=== PATIENT | female | born 1950 | race Caucasian/White ===

== ENCOUNTER 2018-10-24 16:59 | Inpatient (IN) | payer MEDICARE, OTHER ==
[~2018-10-24] VITALS: Ht 157.5 cm; Wt 57.7 kg
--- NOTE | 2018-10-24 06:36 | NUR ---
RN NOTES TELE MONITOR READS SINUS JEFFERY 48 - 55. PATIENT IS ASLEEP BUT AROUSABLE, NO COMPLAINS OF DIFFICULTY BREATHING, PAIN OR DISCOMFORT. WILL CONTINUE TO MONITOR. Addendum: 10/25/18 at 0641 by PAULINE WANG RN WRONG DATE ENTRY.
--- NOTE | 2018-10-24 17:10 | NUR ---
DR VALDOVINOS AT BEDSIDE
[2018-10-24] MEDS ORDERED: ACET-868 PO (17:24)
[2018-10-24] MEDS ORDERED: FENO145T35 PO (17:24)
[2018-10-24] MEDS ORDERED: RISP0.253 PO (17:24)
[2018-10-24] MEDS ORDERED: BENZ1TAB7 PO (17:24)
[2018-10-24] MEDS ORDERED: DOCU-141 PO (17:24)
[2018-10-24] MEDS ORDERED: MAGN400O6 PO (17:24)
[2018-10-24] MEDS ORDERED: ONDA4TAB5 PO (17:24)
[2018-10-24] MEDS ORDERED: NA P133E RC (17:24)
[2018-10-24] MEDS ORDERED: HYDR-4076 PO (17:24)
[2018-10-24] MEDS ORDERED: BISA10SU8 RC (17:24)
[2018-10-24] MEDS ORDERED: OMEG-88 PO (17:24)
[2018-10-24] MEDS ORDERED: LITH300T3 PO (17:24)
[2018-10-24] MEDS ORDERED: PANT40TA2 PO (17:24)
--- NOTE | 2018-10-24 17:34 | NUR ---
CLINICAL RESEARCH TECHNICIAN AT BEDSIDE
--- NOTE | 2018-10-24 17:36 | NUR ---
CODY, FROM SNF CAME D/T ABNORMAL LAB LITHIUM LEVEL OF 1.5, PT AXOX4 FOLLOWS COMMANDS, COMFORTABLE N STABLE ATT
[2018-10-24 18:37] LABS: APPEARANCE,URINE Clear (CLEAR); BILIRUBIN,URINE Negative (NEGATIVE); BLOOD, URINE Negative Ery/uL (NEGATIVE); COLOR,URINE Yellow (YELLOW); KETONES,URINE Negative (NEGATIVE); LEUKOCYTE ESTERASE ,URINE Small (NEGATIVE); NITRITE, URINE Negative (NEGATIVE); PROTEIN,URINE Negative (NEGATIVE); UGLUCOSE Negative (NEGATIVE); UROBILINOGEN,URINE 0.2 EU/dL (0.2)
[2018-10-24 18:47] LABS: BACTERIA,URINE None seen /HPF (None Seen); RBC,URINE 0-2 /HPF (0-2); SQUAMOUS EPITHELIAL CELL,UR Few /HPF (None Seen); WBC,URINE 0-2 /HPF (0-3)
--- NOTE | 2018-10-24 19:02 | NUR ---
PROVIDED W EGG SANDWICH AND APPLE JUICE
[2018-10-24 19:07] LABS: BASOPHILS % (AUTO) 0.5 % (0.0-2.0); EOSINOPHILS % (AUTO) 1.9 % (0.0-6.0); HEMATOCRIT 42 % (33-45); HEMOGLOBIN 13.7 g/dL (11.5-14.8); LYMPHOCYTES # (AUTO) 1.1 /CMM (0.8-4.8); LYMPHOCYTES % (AUTO) 12.1 % (20.0-44.0); MEAN CORPUSCULAR HGB CONC 33 g/dl (31.0-36.0); MEAN CORPUSCULAR VOLUME 88 fL (82-100); MONOCYTES # (AUTO) 0.5 /CMM (0.1-1.30); MONOCYTES % (AUTO) 6.2 % (2.0-12.0); NEUTROPHILS # (AUTO) 6.9 /CMM (1.8-8.9); NEUTROPHILS % (AUTO) 79.3 % (43.0-81.0); PLATELET COUNT (AUTO) 394 /CMM (150-450); RED BLOOD CELL COUNT(AUTO) 4.76 MIL/uL (4.0-5.2); WHITE BLOOD COUNT (AUTO) 8.8 K/uL (4.3-11.0)
[2018-10-24 19:16] LABS: CALCIUM, SERUM 11.5 mg/dL (8.5-10.1); CARBON DIOXIDE 28 mmol/L (21-32); CHLORIDE 109 mmol/L (98-107); CREATININE 1.1 mg/dL (0.6-1.3); GLUCOSE 116 mg/dL (74-106); POTASSIUM 4.1 mmol/L (3.5-5.1); SODIUM SERUM 141 mmol/L (136-145); UREA NITROGEN, BLOOD 19 mg/dL (7-18)
[2018-10-24 19:22] LABS: ACETAMINOPHEN 0 ug/ml (10-30); ALANINE AMINOTRANSFERASE 21 U/L (12-78); ALBUMIN 3.8 g/dL (3.4-5.0); ALCOHOL, BLOOD < 3 mg/dL (0-0); ALKALINE PHOSPHATASE 109 U/L (46-116); ASPARTATE AMINOTRANSFERASE 17 U/L (15-37); BILIRUBIN,DIRECT 0.1 mg/dL (0.0-0.2); BILIRUBIN,TOTAL 0.2 mg/dL (0.2-1.0); SALICYLATE 1.5 mg/dL (2.8-20.0); TOTAL PROTEIN, SERUM 7.7 g/dL (6.4-8.2)
--- NOTE | 2018-10-24 19:29 | NUR ---
ROSITA CALLED AND PLASTER MACHINE TENDER DR VILLAREAL
--- NOTE | 2018-10-24 19:31 | NUR ---
[facility]IN ORTEGA CALLED FOR TELE BED
--- NOTE | 2018-10-24 19:35 | NUR ---
REPORT GIVEN TO ANA BRITT FOR CHARMAINE
--- NOTE | 2018-10-24 19:48 | NUR ---
[facility]IN ORTEGA CALLED FOR TELE BED. STILL AWAITING RESPONSE
--- NOTE | 2018-10-24 19:54 | NUR ---
TELE BED 327-2 GIVEN
--- NOTE | 2018-10-24 20:23 | NUR ---
REPORT GIVEN TO BALWINDER MAC FOR CHARMAINE; PT WILL BE TRANSPORTED TO ROOM 327 VIA ACLS PROTOCOL
[2018-10-24 20:30] VITALS: BP 124/89
--- NOTE | 2018-10-24 20:30 | NUR ---
RN ADMITTING NOTES ADMITTED A 68 Y/O FEMALE, FROM SNF, TRANSPORTED VIA GURNEY, PATIENT IS AMBULATORY WITH STANDBY ASSIST. INITIAL ASSESSMENT DONE, DENIES ANY PAIN AND DISCOMFORT, SAFETY MEASURES IN PLACED, ORIENTED PATIENT TO UNIT AND THE USE OF CALL LIGHT, SKIN IS INTACT, ALL NEEDS ATTENDED, VITAL SIGNS TAKEN AND RECORDED. WILL MONITOR ACCORDINGLY.
[2018-10-24] MEDS ORDERED: Z GUARD REMEDY 2 OZ OINT TP PRN (22:00)
[2018-10-24] MEDS ORDERED: HYDROCODONE/APAP 5/325MG 1 EACH TABLET PO PRN (22:00)
[2018-10-24] MEDS ORDERED: hydrALAZINE HCL 25 MG TABLET PO PRN (22:00)
[2018-10-24] MEDS ORDERED: ZOLPIDEM TARTRATE 5 MG TABLET PO PRN (22:00)
[2018-10-24] MEDS ORDERED: ONDANSETRON HCL/PF 4 MG/2 ML VIAL IVP PRN (22:00)
[2018-10-24] MEDS ORDERED: ACETAMINOPHEN 325 MG TABLET PO PRN (22:00)
[2018-10-24] MEDS: FENOFIBRATE NANOCRYS (145 MG) 145 MG TABLET PO SCH (22:06)
[2018-10-24] MEDS: BENZTROPINE MESYLATE (1 MG) 1 MG TABLET PO SCH (22:06)
[2018-10-24] MEDS: risperiDONE 1 MG TABLET PO SCH (22:06)
[2018-10-24] MEDS: IV NS 0.9% 1,000 ML IV PRN (23:03)
--- NOTE | 2018-10-25 00:08 | NUR ---
RN NOTES PATIENT CONNECTED TO TELE MONITOR, READS SINUS JEFFERY, 50s, WILL CONTINUE TO MONITOR.
[2018-10-25 03:57] VITALS: BP 113/73
[2018-10-25 04:00] VITALS: BP 113/73
--- NOTE | 2018-10-25 04:00 | NUR ---
RN NOTES TELE MONITOR READS SINUS JEFFERY 48 - 55. PATIENT IS ASLEEP BUT AROUSABLE, NO COMPLAINS OF DIFFICULTY BREATHING, PAIN OR DISCOMFORT. WILL CONTINUE TO MONITOR.
--- NOTE | 2018-10-25 06:52 | NUR ---
STEAMBOAT CAPTAIN NOTES ALL NEEDS ATTENDED AND MET, MONITORED VITAL SIGNS WITH EPISODES OF SINUS JEFFERY WITH HR 45s TO 50s, WILL ENDORSE TO AM NURSE FOR CONTINUITY OF CARE.
[2018-10-25 07:23] LABS: BASOPHILS % (AUTO) 0.6 % (0.0-2.0); EOSINOPHILS % (AUTO) 2.7 % (0.0-6.0); HEMATOCRIT 40 % (33-45); LYMPHOCYTES # (AUTO) 1.2 /CMM (0.8-4.8); LYMPHOCYTES % (AUTO) 17.8 % (20.0-44.0); MEAN CORPUSCULAR HGB CONC 33 g/dl (31.0-36.0); MEAN CORPUSCULAR VOLUME 86 fL (82-100); MONOCYTES # (AUTO) 0.4 /CMM (0.1-1.30); MONOCYTES % (AUTO) 5.9 % (2.0-12.0); NEUTROPHILS # (AUTO) 4.8 /CMM (1.8-8.9); PLATELET COUNT (AUTO) 367 /CMM (150-450); WHITE BLOOD COUNT (AUTO) 6.5 K/uL (4.3-11.0)
--- NOTE | 2018-10-25 07:30 | NUR ---
MS/RN Patient received Patient received from night auditor. A/O X3, vital signs stable, no fevers. Tele monitor reading SB, heart rate 53. All needs addressed, will continue to monitor and ensure safety.
[2018-10-25 08:01] LABS: CALCIUM, SERUM 10.7 mg/dL (8.5-10.1); MAGNESIUM 2.1 mg/dL (1.8-2.4); PHOSPHORUS 2.6 mg/dL (2.5-4.9)
[2018-10-25 08:09] VITALS: BP 112/70
[2018-10-25 08:23] VITALS: BP 112/70
[2018-10-25] MEDS: PANTOPRAZOLE 40 MG TABLET.DR PO SCH (09:04)
[2018-10-25] MEDS: BENZTROPINE MESYLATE (1 MG) 1 MG TABLET PO SCH ×2 (09:04→17:01)
[2018-10-25] MEDS: LITHIUM CARBONATE (300 MG CAP) 300 MG CAPSULE PO SCH ×2 (09:05→21:04)
--- NOTE | 2018-10-25 10:00 | NUR ---
MS/RN [place] level Morning labs reviewed: -lithium level 0.97
--- NOTE | 2018-10-25 10:52 | NUR ---
MS/sustainability project manager manager flight Lucy Naranjo called and informed of patient's wish to be discharged to different facility, will follow up.
--- NOTE | 2018-10-25 11:00 | NUR ---
MS/RN S/B Dr Ji Seen by Dr Ji - lithium level now within normal range, continue with current lithium dose and all other medications, discharge planning back to SNF. security services manager to see patient due to request to be placed in different facility.
[2018-10-25] MEDS: IV NS 0.9% 1,000 ML IV PRN (12:06)
--- NOTE | 2018-10-25 14:54 | NUR ---
MS/RN Rounds Patient remains calm and cooperative.
[2018-10-25 16:00] VITALS: BP 110/65
[2018-10-25] MEDS: DOCUSATE SODIUM 100 MG CAPSULE PO SCH (17:01)
--- NOTE | 2018-10-25 18:40 | NUR ---
MS/RN End note Patient remains in stable condition, all needs attended. Will endorse to plant operator/shift supervisor.
--- NOTE | 2018-10-25 19:15 | NUR ---
RN MS OPENING NOTES RECEIVED PATIENT AWAKE, ALERT AND ORIENTED X 4, RESPIRATIONS EVEN AND UNLABORED WITH EQUAL RISE AND FALL OF CHEST,DENIES ANY PAIN OR DISCOMFORT AT THIS TIME, IV SITE TO LEFT WRIST #20g INTACT AND PATENT, NO REDNESS NO INFILTRATION PRESENT, IVF FLOWING ORDERED, ORIENTED TO STAFF AND CALL LIGHT AND KEPT WITHIN REACH, SAFETY PRECAUTIONS IN PLACE, ALL NEEDS ATTENDED AT THIS TIME,REMAINS COMFORTABLE WILL CONTINUE TO MONITOR.
[2018-10-25 20:00] VITALS: BP 110/66
[2018-10-25] MEDS: risperiDONE 1 MG TABLET PO SCH (21:04)
[2018-10-25] MEDS: FENOFIBRATE NANOCRYS (145 MG) 145 MG TABLET PO SCH (21:04)
[2018-10-26] MEDS: IV NS 0.9% 1,000 ML IV PRN (05:05)
--- NOTE | 2018-10-26 06:32 | NUR ---
RN MS CLOSING NOTES PATIENT AWAKE, ALERT AND ORIENTED X 4, RESPIRATIONS EVEN AND UNLABORED WITH EQUAL RISE AND FALL OF CHEST,DENIES ANY PAIN OR DISCOMFORT AT THIS TIME, IV SITE TO RIGHT WRIST #24g INTACT AND PATENT, NO REDNESS NO INFILTRATION PRESENT, PATIENT CURRENTLY WALKING IN ROOM,STEADY CALL LIGHT KEPT WITHIN REACH, SAFETY PRECAUTIONS IN PLACE, ALL NEEDS ATTENDED AT THIS TIME,REMAINS COMFORTABLE WILL CONTINUE TO MONITOR AND ENDORSE TO NEXT SHIFT.
[2018-10-26 06:42] LABS: BASOPHILS # (AUTO) 0.1 /CMM (0.0-0.2); BASOPHILS % (AUTO) 0.8 % (0.0-2.0); EOSINOPHILS % (AUTO) 2.3 % (0.0-6.0); HEMATOCRIT 38 % (33-45); HEMOGLOBIN 12.5 g/dL (11.5-14.8); LYMPHOCYTES # (AUTO) 1.7 /CMM (0.8-4.8); LYMPHOCYTES % (AUTO) 22.4 % (20.0-44.0); MEAN CORPUSCULAR HGB CONC 33 g/dl (31.0-36.0); MEAN CORPUSCULAR VOLUME 86 fL (82-100); MONOCYTES # (AUTO) 0.4 /CMM (0.1-1.30); MONOCYTES % (AUTO) 5.9 % (2.0-12.0); NEUTROPHILS # (AUTO) 5.1 /CMM (1.8-8.9); NEUTROPHILS % (AUTO) 68.6 % (43.0-81.0); PLATELET COUNT (AUTO) 356 /CMM (150-450); RED BLOOD CELL COUNT(AUTO) 4.39 MIL/uL (4.0-5.2); WHITE BLOOD COUNT (AUTO) 7.4 K/uL (4.3-11.0)
[2018-10-26 06:54] LABS: CALCIUM, SERUM 10.5 mg/dL (8.5-10.1); CREATININE 0.9 mg/dL (0.6-1.3); POTASSIUM 4.1 mmol/L (3.5-5.1)
[2018-10-26] MEDS: PANTOPRAZOLE 40 MG TABLET.DR PO SCH (07:30)
--- NOTE | 2018-10-26 07:30 | NUR ---
MS RN Opening Notes Patient asleep, resting in bed. Semi-Fowlers position. Alert and oriented x3, able to make needs known. No complaints of pain at this time. Respirations even and unlabored on room air, no acute distress noted. Peripheral IV to the right wrist 24 gauge, intact, patent and infusing fluids. Updated patient on current plan of care and safety measures. Safety and fall precautions in place: bed in lowest and locked position, side rails up x2, bed alarm on, call light and personal possessions within reach. Will continue to monitor and intervene as needed.
[2018-10-26 08:00] VITALS: BP 129/80
[2018-10-26] MEDS: LITHIUM CARBONATE (300 MG CAP) 300 MG CAPSULE PO SCH ×2 (09:35→21:34)
[2018-10-26] MEDS: BENZTROPINE MESYLATE (1 MG) 1 MG TABLET PO SCH ×2 (09:35→16:51)
--- NOTE | 2018-10-26 11:00 | NUR ---
MS toolroom helper Note Patient currently refusing AM doses of Fairchild and Benztropine. States the previous assistant shift supervisor RN Vonnie already administered. Educated patient about medication administration schedule and attempted to clear up confusion. Patient remains agitated and confused. Will continue to monitor.
[2018-10-26 16:00] VITALS: BP 108/64
[2018-10-26] MEDS: DOCUSATE SODIUM 100 MG CAPSULE PO SCH (17:02)
--- NOTE | 2018-10-26 18:55 | NUR ---
MS RN Closing Notes Patient asleep, resting in bed. Semi-Fowlers position. Alert and oriented x3, able to make needs known. No complaints of pain at this time. Respirations even and unlabored on room air, no acute distress noted. Peripheral IV to the right wrist 24 gauge, intact, patent and saline locked. Updated patient on current plan of care and safety measures. Safety and fall precautions in place: bed in lowest and locked position, side rails up x2, bed alarm on, call light and personal possessions within reach. Will endorse to copy messenger RN for continuity of care.
--- NOTE | 2018-10-26 19:30 | NUR ---
RN MS OPENING NOTES RECEIVED PATIENT IN BED AWAKE, ALERT AND ORIENTED X3, VERBALLY RESPONSIVE, ABLE TO MAKE NEEDS KNOWN. BREATHING EVEN AND UNLABORED. NO SOB NOTED. TOLERATING ROOM AIR. NO COMPLAINTS OF PAIN OR DISCOMFORT. NO FACIAL GRIMACING. IV ON RIGHT WRIST INTACT AND PATENT. SKIN DRY AND WARM TO TOUCH. AFEBRILE. ALL OTHER NEEDS ATTENDED TO. SITTER AT BEDSIDE. SAFETY MEASURES IN PLACE. CALL LIGHT WITHIN REACH. WILL CONTINUE TO MONITOR.
[2018-10-26 20:00] VITALS: BP 117/63
[2018-10-26] MEDS: risperiDONE 1 MG TABLET PO SCH (21:34)
[2018-10-26] MEDS: FENOFIBRATE NANOCRYS (145 MG) 145 MG TABLET PO SCH (21:34)
--- NOTE | 2018-10-27 06:58 | NUR ---
RN MS CLOSING NOTES PATIENT RESTING IN BED. NO ACUTE CHANGES THROUGHOUT SHIFT. BREATHING EVEN AND UNLABORED. NO SOB NOTED. TOLERATING ROOM AIR. NO COMPLAINTS OF PAIN OR DISCOMFORT. NO FACIAL GRIMACING. IV ON RIGHT WRIST INTACT AND PATENT. SKIN DRY AND WARM TO TOUCH. AFEBRILE. ALL OTHER NEEDS ATTENDED TO. SITTER AT BEDSIDE. ANTICIPATING DISCHARGE TO SNF. SAFETY MEASURES IN PLACE. CALL LIGHT WITHIN REACH. WILL ENDORSE TO ONCOMING NURSE FOR CHARMAINE.
[2018-10-27] MEDS: PANTOPRAZOLE 40 MG TABLET.DR PO SCH (07:30)
[2018-10-27] MEDS: BENZTROPINE MESYLATE (1 MG) 1 MG TABLET PO SCH (09:00)
[2018-10-27] MEDS: LITHIUM CARBONATE (300 MG CAP) 300 MG CAPSULE PO SCH (09:00)
--- NOTE | 2018-10-27 12:37 | NUR ---
pt discharged to [facility] gave report to BALWINDER Neri pt transported via [facility]. no SOB not in any distress. denies pain, removed IV access no bleeding no signs of infection. discharge instructions given to pt and SNF nurse. all needs met.
== END 2018-10-27 12:34 | DRG 917 ==
LOC: ER 17:07 → TELE 19:56 → MED 10-25 12:12
PROVIDERS: ADMIT Nurse Practitioner Acute Care; ATTEND Family Medicine
DX: T56.891A Toxic effect of other metals, accidental (unintentional), initial encounter (principal); G92 Toxic encephalopathy; Y92.009 Unspecified place in unspecified non-institutional (private) residence as the place of occurrence of the external cause; I10 Essential (primary) hypertension; E78.5 Hyperlipidemia, unspecified; Z87.440 Personal history of urinary (tract) infections; F25.0 Schizoaffective disorder, bipolar type
CPT/HCPCS: 36415; 71045-TC; 80048-TC; 80061-TC; 80076-TC; 80305; 81000-TC; 83735-TC; 84100-TC; 85025-TC; 87081-TC; G0378; G0480; J7030

== ENCOUNTER 2020-05-03 13:02 | Emergency (ER) | payer MEDICARE, OTHER ==
[~2020-05-03] VITALS: Ht 160 cm; Wt 61.2 kg
[~2020-05-03 13:02] MED LIST: ACET-868 PO; BENZ1TAB7 PO; BISA10SU11 RC; DOCU-141 PO; FENO145T21 PO; HYDR-4076 PO; LITH300T3 PO; MAGN400O6 PO; NA P133E RC; OMEG-88 PO; ONDA4TAB5 PO; PANT40TA2 PO; RISP0.253 PO
[2020-05-03 13:04] VITALS: BP 133/92
--- NOTE | 2020-05-03 14:16 | NUR ---
[facility] ETA 1440
--- NOTE | 2020-05-03 14:44 | NUR ---
REPORT GIVEN TO KING KING
== END 2020-05-03 14:42 | disposition home or self-care (01) ==
LOC: ER 13:06
DX: H10.31 Unspecified acute conjunctivitis, right eye (principal); I10 Essential (primary) hypertension; E78.5 Hyperlipidemia, unspecified; F41.9 Anxiety disorder, unspecified; F20.9 Schizophrenia, unspecified; Z79.899 Other long term (current) drug therapy

== ENCOUNTER 2020-05-06 13:02 | Inpatient (IN) | payer MEDICARE, OTHER ==
[~2020-05-06] VITALS: Ht 167.6 cm; Wt 58.5 kg
--- NOTE | 2020-05-06 13:15 | NUR ---
CODY FROM [facility]. TO ER BED 12. AAOX1. NOT IN RESP DISTRESS. BROUGHT IN FOR R FACIAL REDNESS AND SWELLING W/ NOTED DRY SCABS OVER. PT WAS SENT OVER BY ASHLEY PERERA TO BE REFFERED TO DR. SENIOR. WAS AT THE BEDSIDE FOR EVAL. ORDERS RECEIVED NOTED AND CARRIED OUT.
--- NOTE | 2020-05-06 13:17 | NUR ---
CALLED DR SANDERS'S OFFICE TO REQUEST A PEER TO PEER
--- NOTE | 2020-05-06 13:19 | NUR ---
SPOKE TO DISABILITY AIDE FOR DR SANDERS, SHE WILL PAGE HIM
[2020-05-06] MEDS ORDERED: CEFAZOLIN 1 GM in IV D5W 50 ML IV ONE (13:30)
[2020-05-06] MEDS ORDERED: ACYCLOVIR IV 500 MG in IV D5W 100 ML IV ONE (13:30)
[2020-05-06 13:38] LABS: BASOPHILS # (AUTO) 0.1 /CMM (0.0-0.2); BASOPHILS % (AUTO) 0.7 % (0.0-2.0); EOSINOPHILS % (AUTO) 0.3 % (0.0-6.0); HEMATOCRIT 44 % (33-45); HEMOGLOBIN 14.6 g/dL (11.5-14.8); LYMPHOCYTES # (AUTO) 0.6 /CMM (0.8-4.8); LYMPHOCYTES % (AUTO) 7.9 % (20.0-44.0); MEAN CORPUSCULAR HGB CONC 33 g/dl (31.0-36.0); MEAN CORPUSCULAR VOLUME 94 fL (82-100); MONOCYTES # (AUTO) 0.9 /CMM (0.1-1.30); MONOCYTES % (AUTO) 12.1 % (2.0-12.0); NEUTROPHILS # (AUTO) 5.8 /CMM (1.8-8.9); PLATELET COUNT (AUTO) 362 /CMM (150-450); RED BLOOD CELL COUNT(AUTO) 4.66 MIL/uL (4.0-5.2); WHITE BLOOD COUNT (AUTO) 7.4 K/uL (4.3-11.0)
--- NOTE | 2020-05-06 13:49 | NUR ---
MOVE SHEET SUBMITTED AND CALLED FOR MS BED.
[2020-05-06] MEDS ORDERED: COGENTIN PO (14:32)
--- NOTE | 2020-05-06 14:42 | NUR ---
CALLED HOUSE SUP TO FOLLOW UP FOR A BED.
--- NOTE | 2020-05-06 14:57 | NUR ---
REPORT GIVEN TO BALWINDER MEAD FOR CHARMAINE
--- NOTE | 2020-05-06 15:08 | NUR ---
PT TRANSPORTED TO UNIT ON [facility] WITH EMT AT BEDSIDE. PT IS IN STABLE CONDITION FOR TRANSPORT. NAD NOTED
[2020-05-06 15:10] VITALS: BP 116/70
--- NOTE | 2020-05-06 15:10 | NUR ---
tele industrial truck mechanic: admission admitted this 69 year old female pt from e.r. with dx: right facial cellulitis, pt awake, alert to self only with confusion and disorientation to time, place, and situation. pt on a gown, per e.r. pt very confused and refusing to wear a hospital gown. pt easily agitated and combative during assessment, still refusing to wear a hospital gown despite reality orientation provided prn. unable to do full skin assessment due to combativeness. vss. no acute distress noted. on room air. will continue to monitor.
[2020-05-06 16:00] VITALS: BP 116/70
[2020-05-06 16:00] LABS: CALCIUM, SERUM 12.7 mg/dL (8.5-10.1); CREATININE 1.6 mg/dL (0.6-1.3); POTASSIUM 4.4 mmol/L (3.5-5.1)
--- NOTE | 2020-05-06 16:10 | NUR ---
tele research subject: notes dr. montes notified of new admission and will see pt as stated.
[2020-05-06] MEDS ORDERED: ACETAMINOPHEN 325 MG TABLET PO PRN ×2 (17:00)
[2020-05-06] MEDS ORDERED: ONDANSETRON HCL/PF 4 MG/2 ML VIAL IVP PRN (17:00)
[2020-05-06] MEDS ORDERED: HYDROCODONE/APAP 5/325MG TABLET PO PRN (17:00)
[2020-05-06] MEDS ORDERED: ZOLPIDEM TARTRATE 5 MG TABLET PO PRN (17:00)
[2020-05-06] MEDS ORDERED: hydrALAZINE HCL 25 MG TABLET PO PRN (17:00)
[2020-05-06] MEDS ORDERED: Z GUARD REMEDY 2 OZ OINT TP PRN (17:00)
--- NOTE | 2020-05-06 17:00 | NUR ---
tele hospice music therapy: notes check diaper with cyber policy and strategy planner, but dry, still resistive with care. no visible skin breakdown noted at this time. reality orientation provided prn.
--- NOTE | 2020-05-06 17:30 | NUR ---
tele director behavioral health: md visit seen by dr. montes at this time.
[2020-05-06] MEDS: DOCUSATE SODIUM 100 MG CAPSULE PO SCH (17:46)
[2020-05-06] MEDS: BENZTROPINE MESYLATE (1 MG) 1 MG TABLET PO SCH (17:47)
[2020-05-06] MEDS: LITHIUM CARBONATE 150 MG CAPSULE PO SCH ×2 (17:51→21:25)
--- NOTE | 2020-05-06 19:00 | NUR ---
tele fender mechanic apprentice: notes urine collected via clean catch and lab called to burr picker specimen. needs attended.
--- NOTE | 2020-05-06 19:10 | NUR ---
tele consumer affairs specialist: notes report given to landon archer) for continuity of care.
[2020-05-06 20:00] VITALS: BP 117/68
[2020-05-06] MEDS: CEFTRIAXONE 1 G in IV D5W 50 ML IV SCH (20:57)
[2020-05-06] MEDS ORDERED: VANCOMYCIN 1 GM in IV D5W 250ml IV SCH (21:00)
[2020-05-06] MEDS: risperiDONE 1 MG TABLET PO SCH (21:26)
[2020-05-06] MEDS: FENOFIBRATE NANOCRYS (145 MG) 145 MG TABLET PO SCH (21:26)
[2020-05-06 21:42] LABS: APPEARANCE,URINE CLEAR (CLEAR); BILIRUBIN,URINE NEGATIVE (NEGATIVE); BLOOD, URINE NEGATIVE Ery/uL (NEGATIVE); COLOR,URINE YELLOW (YELLOW); KETONES,URINE NEGATIVE (NEGATIVE); LEUKOCYTE ESTERASE ,URINE NEGATIVE (NEGATIVE); NITRITE, URINE NEGATIVE (NEGATIVE); PROTEIN,URINE NEGATIVE (NEGATIVE); UGLUCOSE NEGATIVE (NEGATIVE); UROBILINOGEN,URINE 0.2 EU/dL (0.2)
[2020-05-06 21:48] LABS: EOSINOPHIL,URINE None Seen
[2020-05-06 23:32] LABS: CREATININE, URINE 68.5 MG/DL (30.0-125.0); URINE TOTAL PROTEIN 15.1 mg/dL (0-11.9)
[2020-05-06] MEDS: ACYCLOVIR IV 500 MG in IV D5W 100 ML IV SCH (23:36)
[2020-05-07] VITALS: BP 125/76
--- NOTE | 2020-05-07 00:30 | NUR ---
PATIENT TRANSFERRED TO 203 BED 1 TO BE CLOSER TO NURSING STATION. PT HIGH FALL RISK AND ATTEMPTING TO GET OOB WITHOUT ASSIST.
--- NOTE | 2020-05-07 01:19 | NUR ---
rn pm notes patient is alert and keeps attempting to climb out of bed multiple times this evening. patient not following safety instructions. pt is somewhat combative attempting to pinch myself and staff when being assisted back to bed. and keeps attempting to exit bed. contacted ron oviedo and informed. order recieved for restraints to keep patient safe from possible unassisted ammbulation pt has unsteady gait ad risk for fall.
[2020-05-07] MEDS: IV NS 0.9% 1,000 ML IV PRN (03:45)
[2020-05-07 04:00] VITALS: BP 123/66
[2020-05-07] MEDS: ACYCLOVIR IV 500 MG in IV D5W 100 ML IV SCH ×3 (05:03→20:31)
--- NOTE | 2020-05-07 06:49 | NUR ---
MS TELE CLOSING NOTES. PT AROUSABLE TO TOUCH. PT RESTRAINED WITH BILATERAL WRIST RESTRAINGS IN SEMIFOWLERS POSIONT IN NO APPARENT DISTRESS. RESP EVEN AND UNLABORED. IVF INFUSING TO RIGHT AC 20 WITH NO S/S OF INFILTRATION. BED DOWN LOCKED. CALL LIGHT PALCED WITHIN REACH.PT SR ON TELE MONITOR. BED ALARM ACTIVE. WILL ENDORSE TO ONCOMING SHIFT.
[2020-05-07 07:25] LABS: BASOPHILS % (AUTO) 0.6 % (0.0-2.0); EOSINOPHILS % (AUTO) 0.3 % (0.0-6.0); HEMATOCRIT 44 % (33-45); HEMOGLOBIN 14.2 g/dL (11.5-14.8); LYMPHOCYTES # (AUTO) 0.6 /CMM (0.8-4.8); LYMPHOCYTES % (AUTO) 10.1 % (20.0-44.0); MEAN CORPUSCULAR HGB CONC 33 g/dl (31.0-36.0); MEAN CORPUSCULAR VOLUME 94 fL (82-100); MONOCYTES # (AUTO) 0.6 /CMM (0.1-1.30); MONOCYTES % (AUTO) 9.3 % (2.0-12.0); NEUTROPHILS # (AUTO) 5.1 /CMM (1.8-8.9); NEUTROPHILS % (AUTO) 79.7 % (43.0-81.0); PLATELET COUNT (AUTO) 340 /CMM (150-450); RED BLOOD CELL COUNT(AUTO) 4.66 MIL/uL (4.0-5.2); WHITE BLOOD COUNT (AUTO) 6.3 K/uL (4.3-11.0)
--- NOTE | 2020-05-07 07:30 | NUR ---
RN Opening note Received patient AO x 2-3, confuse, attempting out of the bed, does no appears akbar or distress. Skin is warm to touch, keep clean/dry, intact IV site. Respiratory even and unlabored on room air, o2sat 99%. Keep bed in locked with elevated HOB for ensure airway and aspiration precaution. Call light within reach, will continue to monitor.
[2020-05-07 08:00] VITALS: BP 126/79
[2020-05-07] MEDS: PANTOPRAZOLE 40 MG TABLET.DR PO SCH (08:42)
[2020-05-07] MEDS: BENZTROPINE MESYLATE (1 MG) 1 MG TABLET PO SCH ×2 (08:42→17:00)
[2020-05-07] MEDS: LITHIUM CARBONATE 150 MG CAPSULE PO SCH ×2 (08:43→21:28)
[2020-05-07 09:01] LABS: ALBUMIN 3.7 g/dL (3.4-5.0); BILIRUBIN,TOTAL 0.2 mg/dL (0.2-1.0); CALCIUM, SERUM 12.8 mg/dL (8.5-10.1); CREATININE 1.5 mg/dL (0.6-1.3); MAGNESIUM 2.9 mg/dL (1.8-2.4); PHOSPHORUS 2.3 mg/dL (2.5-4.9); POTASSIUM 4.7 mmol/L (3.5-5.1); TOTAL PROTEIN, SERUM 7.8 g/dL (6.4-8.2)
--- NOTE | 2020-05-07 09:12 | NUR ---
WOUND CARE CONSULT: REVIEWED CHART, NURSING DOCUMENTATION AND PHOTO WHICH INDICATES REDNESS, SWELLING TO RT SIDE OF FACE. RT EYE IS CLOSED. RECOMMENDATIONS MADE FOR SKIN PROTECTION BUT DEFER TO MD FOR FACIAL ISSUE. RN TO DISCUSS WITH MD TODAY. WILL SEE PRN.
[2020-05-07] MEDS ORDERED: K PHOS NEUTRAL 250 MG TABLET PO ONE (12:30)
[2020-05-07 16:00] VITALS: BP 140/85
[2020-05-07] MEDS: DOCUSATE SODIUM 100 MG CAPSULE PO SCH (17:35)
--- NOTE | 2020-05-07 18:30 | NUR ---
Patient transferred room 304-1, given report Maryam/RN.
--- NOTE | 2020-05-07 19:02 | NUR ---
MS/RN - Notes Received patient from MS2 203-1, report given by BALWINDER Land, A/O x 0, non-communicative, no s/s pain, stable on room air, confused, agitated, on bilateral soft wrist restraints to prevent pulling out peripheral IV. Placed on airborne and contact isolation precautions for Herpes Zoster. Will endorse to night RN for continuity of care.
--- NOTE | 2020-05-07 19:30 | NUR ---
VARNISHING UNIT OPERATOR OPENING NOTES RECEIVED PATIENT IN BED CONFUSED, NON-VERBAL AND AGITATED TRIES TO GET OUT OF BED. BREATHING REGULAR AND UNLABORED ON ROOM AIR. RIGHT AC G20 IV LINE INTACT AND PATENT, FLUSHING WELL WITH NO BLEEDING OR S/S OF INFILTRATION NOTED. ON CARDIAC MONITORING WITH NSR AT 62bpm. ON BILATERAL SOFT WRIST RESTRAINTS, SKIN ASSESSMENT DONE. NO S/S OF PAIN/DISCOMFORT SEEN AT THIS TIME. OBSERVED WITH RIGHT FACIAL REDNESS WITH SCABS AND SCANT CLEAR DISCHARGES. BED LOW AND LOCKED ON SEMI FOWLERS POSITION. CALL LIGHT IN REACH. WILL CLOSELY MONITOR.
[2020-05-07] MEDS: CEFTRIAXONE 1 G in IV D5W 50 ML IV SCH (19:42)
[2020-05-07 20:00] VITALS: BP 120/57
--- NOTE | 2020-05-07 20:00 | NUR ---
AREA ATTENDANT NOTES TRANSFERRED TO ROOM 306-1 FOR CONTACT ISOLATION FOR HERPES. PROPER HAND WASHING AND ISOLATION PRECAUTION OBSERVED. WILL CONTINUE TO MONITOR.
[2020-05-07] MEDS: FENOFIBRATE NANOCRYS (145 MG) 145 MG TABLET PO SCH (21:27)
[2020-05-07] MEDS: risperiDONE 1 MG TABLET PO SCH (21:27)
[2020-05-07] MEDS: VANCOMYCIN 1 GM in IV D5W 250ml IV SCH (21:39)
[2020-05-08] VITALS: BP 142/81
[2020-05-08 04:00] VITALS: BP 129/90
[2020-05-08] MEDS: ACYCLOVIR IV 500 MG in IV D5W 100 ML IV SCH ×3 (04:34→21:24)
--- NOTE | 2020-05-08 06:45 | NUR ---
GREENHOUSE GROWER CLOSING NOTES PATIENT IN BED, CONFUSED NON-VERBAL WITH EPISODES OF AGITATION. AFEBRILE WITH NO S/S OF DISTRESS OBSERVED. RIGHT AC G20 IV LINE PATENT AND FLUSHING WELL. MAINTAINED ON CARDIAC MONITORING WITH NSR AT 64bpm. MAINTAINED ON BILATERAL SOFT WRIST RESTRAINTS, SKIN ASSESSMENT DONE. NO S/S OF PAIN/DISCOMFORT SEEN AT THIS TIME. BED LOW AND LOCKED ON SEMI FOWLERS POSITION. CALL LIGHT IN REACH. WILL ENDORSE TO MORNING SHIFT FOR CHARMAINE.
[2020-05-08] MEDS: PANTOPRAZOLE 40 MG TABLET.DR PO SCH (07:12)
[2020-05-08] MEDS: IV NS 0.9% 1,000 ML IV PRN ×2 (07:12→18:23)
--- NOTE | 2020-05-08 07:35 | NUR ---
BAG HANGER NOTES PATIENT RECEIVED IN BED, SLEEPING. PATIENT ALERT AND ORIENTED X 0 NON-VERBAL, PERIODS OF AGITATION AND CONFUSED. PATIENT ON ROOM AIR WITH NO SIGNS OF RESPIRATORY DISTRESS PRESENT AT THIS TIME, WITH EVEN NON-LABORED BREATHING, AND NO SOB NOTED. ON ASSISTANT TO THE CEO NORMAL SINUS RHYTHM IN 60'S. PATIENT SKIN WARM AND DRY. FACIAL RASH PRESENT ON RIGHT SIDE. NEW IV ACCESS INSERTED ON RIGHT FOREARM GAUGE 22, INFUSING NORMAL SALINE AT 100ml/hr. PATIENT PRESENTS WITH NO PAIN OR DISCOMFORT AT THIS TIME. BILATERAL SOFT WRIST RESTRAINTS IN PLACE WITH TWO FINGER SPACE BREATH, AND ADEQUATE CIRCULATION PRESENT. SAFETY PRECAUTIONS IN PLACE WITH BED LOCKED, BED IN THE LOWEST POSITION,BILATERAL SIDE RAILS UP AND CALL LIGHT WITHIN EASY REACH WILL CONTINUE TO MONITOR PATIENT.
[2020-05-08 08:00] VITALS: BP 141/77
[2020-05-08 09:12] LABS: PTH, INTACT 123 pg/mL (15-65)
[2020-05-08] MEDS: BENZTROPINE MESYLATE (1 MG) 1 MG TABLET PO SCH ×2 (09:15→17:05)
[2020-05-08] MEDS: LITHIUM CARBONATE 150 MG CAPSULE PO SCH ×2 (09:16→21:31)
[2020-05-08 12:22] VITALS: BP 147/92
--- NOTE | 2020-05-08 12:22 | NUR ---
RN NOTES PATIENT HAD FACIAL GRIMACE AND PRESENT SIGNS OF DISCOMFORT. VITAL SIGNS BP:147/92 HEART RATE 67. ADMINISTERED PRN NORCO 5-325mg PO ORDERED, WILL CONTINUE TO MONITOR PATIENT.
[2020-05-08 13:12] LABS: CALCIUM, SERUM 12.4 mg/dL (8.5-10.1); CREATININE 1.2 mg/dL (0.6-1.3); PHOSPHORUS 2.1 mg/dL (2.5-4.9); POTASSIUM 4.1 mmol/L (3.5-5.1)
--- NOTE | 2020-05-08 14:05 | NUR ---
RN NOTES CALLED PERSON TO NOTIFY ABDULAZIZ COONEY, MULTIPLE TIMES AND NO ANSWER. LEFT VOICEMAIL AND CALL BACK NUMBER. AT THIS TIME WILL CONTINUE TO MONITOR PATIENT.
[2020-05-08 16:00] VITALS: BP 139/71
[2020-05-08] MEDS ORDERED: NEUTRA PHOS 1 POWD.PACKET PO ONE (16:00)
[2020-05-08] MEDS: DOCUSATE SODIUM 100 MG CAPSULE PO SCH (17:05)
[2020-05-08] MEDS: CIPROFLOXACIN HCL 0.3% 5 ML BOTTLE RIGHTEYE SCH (17:08)
--- NOTE | 2020-05-08 18:25 | NUR ---
MS RN NOTES PATIENT IN BED RESTING COMFORTABLY. ALERT AND ORIENTED X 1, PATIENT NON-VERBAL, WITH PERIODS OF AGITATION. PATIENT ON ROOM AIR WITH NO SIGNS OF RESPIRATORY DISTRESS AT THIS TIME, WITH EVEN NON-LABORED BREATHING, AND NO SOB NOTED. IV ACCESS INTACT AND PATENT INFUSING NORMAL SALINE AT 100ml/hr. PATIENT'S SKIN KEPT CLEAN AND DRY. MET ALL OF PATIENT'S NEEDS. BILATERAL SOFT WRIST RESTRAINTS IN PLACE WITH 2 FINGER SPACE, AND ADEQUATE SKIN CIRCULATION PRESENT. PATIENT PRESENTS WITH NO PAIN OR DISCOMFORT AT THIS TIME. SAFETY PRECAUTIONS IMPLEMENTED WITH BED LOCKED, BED IN THE LOWEST POSITION, BILATERAL SIDE RAILS UP, AND CALL LIGHT WITHIN EASY REACH OF THE PATIENT. WILL ENDORSE PLAN OF CARE TO UPCOMING NURSE.
[2020-05-08] MEDS: CEFTRIAXONE 1 G in IV D5W 50 ML IV SCH (18:30)
--- NOTE | 2020-05-08 19:43 | NUR ---
MS RN NOTES RECEIVED PATIENT IN BED RESTING COMFORTABLY. ALERT AND ORIENTED X 1, PATIENT NON-VERBAL, WITH PERIODS OF AGITATION. PATIENT ON ROOM AIR WITH NO SIGNS OF ACUTE RESPIRATORY DISTRESS AT THIS TIME, WITH EVEN NON-LABORED BREATHING, AND NO SOB NOTED. IV ACCESS INTACT AND PATENT INFUSING NORMAL SALINE AT 100ml/hr. PATIENT'S SKIN KEPT CLEAN AND DRY. MET ALL OF PATIENT'S NEEDS. BILATERAL SOFT WRIST RESTRAINTS IN PLACE WITH 2 FINGER SPACE, AND ADEQUATE SKIN CIRCULATION PRESENT. PATIENT PRESENTS WITH NO PAIN OR DISCOMFORT AT THIS TIME. SAFETY PRECAUTIONS INPLACED BED LOCKED, BED IN LOW LOCKED POSITION. BILATERAL SIDE RAILS UP, AND CALL LIGHT WITHIN EASY REACH. ALL NEEDS ANTICIPATED. WILL CONTINUETO MONITOR ACCORDINGLY.
[2020-05-08 20:00] VITALS: BP 151/80
[2020-05-08] MEDS: FENOFIBRATE NANOCRYS (145 MG) 145 MG TABLET PO SCH (21:31)
[2020-05-08] MEDS: risperiDONE 1 MG TABLET PO SCH (21:31)
[2020-05-08] MEDS: VANCOMYCIN 1 GM in IV D5W 250ml IV SCH (22:01)
[2020-05-09 02:07] LABS: CREATININE KINASE (CK),MB 4.7 ng/mL (0.0-5.3)
[2020-05-09] MEDS: ACYCLOVIR IV 500 MG in IV D5W 100 ML IV SCH ×3 (04:41→22:11)
--- NOTE | 2020-05-09 06:43 | NUR ---
MS RN NOTES ALL NEEDS ATTENDED AND MET. ABLE TO REST AND SLEPT AT INTERVALS. PATIENT IN BED RESTING COMFORTABLY. ALERT AND ORIENTED X 1, PATIENT NON-VERBAL, WITH PERIODS OF AGITATION. PATIENT ON ROOM AIR WITH NO SIGNS OF ACUTE RESPIRATORY DISTRESS AT THIS TIME, WITH EVEN NON-LABORED BREATHING, AND NO SOB NOTED. IV ACCESS INTACT AND PATENT INFUSING NORMAL SALINE AT 100ml/hr. PATIENT'S SKIN KEPT CLEAN AND DRY. MET ALL OF PATIENT'S NEEDS. BILATERAL SOFT WRIST RESTRAINTS IN PLACE WITH 2 FINGER SPACE, AND ADEQUATE SKIN CIRCULATION PRESENT. PATIENT PRESENTS WITH NO PAIN OR DISCOMFORT AT THIS TIME. SAFETY PRECAUTIONS INPLACED BED LOCKED, BED IN LOW LOCKED POSITION. BILATERAL SIDE RAILS UP, AND CALL LIGHT WITHIN EASY REACH. ALL NEEDS ANTICIPATED. WILL ENDORSE TO AM NURSE FOR CONTINUITY OF CARE.
[2020-05-09 07:39] LABS: BASOPHILS % (AUTO) 0.9 % (0.0-2.0); EOSINOPHILS % (AUTO) 1.8 % (0.0-6.0); HEMATOCRIT 41 % (33-45); HEMOGLOBIN 13.4 g/dL (11.5-14.8); LYMPHOCYTES # (AUTO) 0.8 /CMM (0.8-4.8); LYMPHOCYTES % (AUTO) 18.1 % (20.0-44.0); MEAN CORPUSCULAR HGB CONC 33 g/dl (31.0-36.0); MEAN CORPUSCULAR VOLUME 94 fL (82-100); MONOCYTES # (AUTO) 0.5 /CMM (0.1-1.30); MONOCYTES % (AUTO) 11.5 % (2.0-12.0); NEUTROPHILS # (AUTO) 3.2 /CMM (1.8-8.9); NEUTROPHILS % (AUTO) 67.7 % (43.0-81.0); PLATELET COUNT (AUTO) 363 /CMM (150-450); RED BLOOD CELL COUNT(AUTO) 4.34 MIL/uL (4.0-5.2); WHITE BLOOD COUNT (AUTO) 4.7 K/uL (4.3-11.0)
[2020-05-09 07:50] LABS: CALCIUM, SERUM 12.2 mg/dL (8.5-10.1); CREATININE 1.1 mg/dL (0.6-1.3); PHOSPHORUS 2.3 mg/dL (2.5-4.9)
[2020-05-09 08:00] VITALS: BP_SYST 131; BP_SYST 140; BP_DIAS 78; BP_DIAS 87
--- NOTE | 2020-05-09 08:00 | NUR ---
RN NOTES RECEIVED PATIENT IN THE BED CONFUSED, ON ROOM AIR, NO ACUTE RESPIRATORY DISTRESS, PATIENT HAS A CELLULITIS ON RIGHT EYE, AND DRY SCALY SKIN. SEEN HOSPITALIST, AND TO ORDER CLEAN EYES, AND APPLY MEDICATION, ORDER TAKEN AND CARRIED OUT. PATIENT ON BUE RESTRAIN, CIRCULATION CHECKED. INFUSING NS AT 100 ML/HR ON RIGHT FA, UNABLE TO FEED PATIENT BECAUSE FOODS HOLDING IN THE MOUTH,CRUSHED MEDICATION, AND ADMINISTERED WITH APPLE SAUCE. PATIENT INCONTINENT, ACTIVELY MOVING IN THE BED TRYING TO GET OUT OF BED. BED ALARM ON, SIDE RAILS UP. WILL CONTINUE MONITORING.
[2020-05-09] MEDS: BENZTROPINE MESYLATE (1 MG) 1 MG TABLET PO SCH ×2 (09:42→17:11)
[2020-05-09] MEDS: LITHIUM CARBONATE 150 MG CAPSULE PO SCH ×2 (09:42→21:58)
[2020-05-09] MEDS: PANTOPRAZOLE 40 MG TABLET.DR PO SCH (09:42)
[2020-05-09] MEDS: CIPROFLOXACIN HCL 0.3% 5 ML BOTTLE RIGHTEYE SCH ×2 (09:51→16:50)
[2020-05-09] MEDS ORDERED: NEUTRA PHOS 1 POWD.PACKET PO ONE (11:30)
--- NOTE | 2020-05-09 14:00 | NUR ---
RN NOTES PATIENT IN THE BED REINSERTED NEW IV ACCESS ON LEFT WRIST. INFUSING ZOVIRAX 100 ML/HR INTACT. CONTINUED MONITORING.
[2020-05-09 14:50] LABS: *SPE A/G RATIO 0.8 (0.7-1.7); *SPE ALBUMIN 3.4 g/dL (2.9-4.4); *SPE ALPHA-1-GLOBULIN 0.4 g/dL (0.0-0.4); *SPE BETA GLOBULIN 1.3 g/dL (0.7-1.3); *SPE GLOBULIN, TOTAL 4.1 g/dL (2.2-3.9); *SPE M-SPIKE Not Observed g/dL (Not Observed); *SPEGAMMA GLOBULIN 1.4 g/dL (0.4-1.8)
[2020-05-09] MEDS ORDERED: ACYC500V2 IV (15:30)
[2020-05-09] MEDS ORDERED: METH4TAB17 PO (15:30)
[2020-05-09] MEDS ORDERED: VANC1FRO2 IV (15:30)
[2020-05-09] MEDS ORDERED: CEFT1VIA15 IV (15:30)
[2020-05-09 16:00] VITALS: BP 138/63
[2020-05-09] MEDS ORDERED: VANCOMYCIN 1 GM in IV D5W 250ml IV SCH (16:00)
--- NOTE | 2020-05-09 16:05 | NUR ---
RN NOTES DISCHARGE NOTES PER HOSPITALIST, CALLED AND GET TO ORDER MIDLINE INSERTION FOR LONG TER IV INFUSION, ORDER TAKEN AND CARRIED OUT, CLOUD SYSTEMS ADMINISTRATOR NOTIFIED.
[2020-05-09] MEDS: DOCUSATE SODIUM 100 MG CAPSULE PO SCH (17:11)
--- NOTE | 2020-05-09 17:15 | NUR ---
rn notes patient does not eat today, aggressive, trying to get out of bed, notified hospitalist Dr. Damian, and held discharge orders today, case management aware of.
--- NOTE | 2020-05-09 18:30 | NUR ---
RN NOTES ADMINISTERED SCHEDULED MEDICATION, GIVEN COUPLE OF SPOON OF FOOD, BUT PATIENT HOLDING IN THE MOUTH, AND PRONE TO ASPIRATION. KEEP HOB ELEVATED, PATIENT MOVING IN THE BED, INFUSING ROCEPHIN 100 ML/HR ON LEFT WRIST, INTACT.ENDORSED ONCOMING NURSE CHARMAINE, WAITING MIDLINE NURSE INSERTION.
[2020-05-09] MEDS: methylPREDNISolone SOD SUCC 40 MG/ML VIAL IV SCH (18:43)
[2020-05-09] MEDS: CEFTRIAXONE 1 G in IV D5W 50 ML IV SCH (18:43)
[2020-05-09 20:00] VITALS: BP 150/70
--- NOTE | 2020-05-09 20:05 | NUR ---
MS/RN OPENING NOTE Patient asleep in bed, confused, bed bound. Contact isolation. Aspiration precaution. Breathing even, clear, unlabored, on room air. No signs of acute distress or SOB. No JVD. CRP <3seconds. Skin warm, pink, dry, appropriate for ethnicity. IV site RFA 22g running NS @ 100 ml/hr, no signs of redness or infiltration. Right facial cellulitis noted, dry, red, scaly. Patient on bilateral upper extremity restraints. No redness or skin breakdown. Abdomen small, round, soft, non-distended. Bowel sounds hypoactive. Patient is incontinent. Bed in low position, wheels locked, side rails up x2, call light within reach.
[2020-05-09] MEDS: FENOFIBRATE NANOCRYS (145 MG) 145 MG TABLET PO SCH (21:58)
[2020-05-09] MEDS: DOXYCYCLINE HYCLATE (100 MG) 100 MG TABLET PO SCH (21:58)
[2020-05-09] MEDS: risperiDONE 1 MG TABLET PO SCH (21:58)
[2020-05-09] MEDS: IV NS 0.9% 1,000 ML IV PRN (22:21)
[2020-05-09 22:36] VITALS: BP 150/70
[2020-05-10] MEDS: ACYCLOVIR IV 500 MG in IV D5W 100 ML IV SCH ×2 (04:00→14:04)
--- NOTE | 2020-05-10 06:00 | NUR ---
MS/RN CLOSING NOTE Patient asleep in bed, confused, bed bound. Contact isolation. Aspiration precaution. Breathing even, clear, unlabored, on room air. Bruises noted on RAC and LAC. No signs of acute distress or SOB. IV site HARRIETT 18g running NS @ 100 ml/hr, no signs of redness or infiltration. Right facial cellulitis noted, dry, red, scaly. Patient on bilateral upper extremity restraints. Patient inadequately able to swallow PO medications, she does not effectively swallow. Patient is incontinent. Void 3x, clear, yellow urine. No bowel movement. Bed in low position, wheels locked, side rails up x2, call light within reach. Will endorse to oncoming nurse.
[2020-05-10 06:34] LABS: BASOPHILS % (AUTO) 0.5 % (0.0-2.0); EOSINOPHILS % (AUTO) 0.4 % (0.0-6.0); HEMATOCRIT 41 % (33-45); HEMOGLOBIN 13.7 g/dL (11.5-14.8); LYMPHOCYTES # (AUTO) 1.3 /CMM (0.8-4.8); MEAN CORPUSCULAR HGB CONC 34 g/dl (31.0-36.0); MEAN CORPUSCULAR VOLUME 94 fL (82-100); MONOCYTES # (AUTO) 0.5 /CMM (0.1-1.30); MONOCYTES % (AUTO) 8.3 % (2.0-12.0); NEUTROPHILS # (AUTO) 4.6 /CMM (1.8-8.9); NEUTROPHILS % (AUTO) 70.8 % (43.0-81.0); PLATELET COUNT (AUTO) 364 /CMM (150-450); RED BLOOD CELL COUNT(AUTO) 4.35 MIL/uL (4.0-5.2); WHITE BLOOD COUNT (AUTO) 6.5 K/uL (4.3-11.0)
[2020-05-10] MEDS: PANTOPRAZOLE 40 MG TABLET.DR PO SCH (06:47)
[2020-05-10 06:57] LABS: PHOSPHORUS 2.9 mg/dL (2.5-4.9); POTASSIUM 3.7 mmol/L (3.5-5.1)
--- NOTE | 2020-05-10 07:15 | NUR ---
MS RN NOTES PATIENT IN BED ALERT ORIENTED X 1. NO ACUTE DISTRESS NOTED. BREATHING UNLABORED. NO SOB NOTED. IV ACCESS PATENT AND INTACT, NO REDNESS, NO BLEEDING, NO SWELLING NOTED. SAFETY MEASURES IN PLACE, CALL LIGHT WITHIN REACH. WILL CONTINUE TO MONITOR ACCORDINGLY.
[2020-05-10 08:00] VITALS: BP 143/78
[2020-05-10] MEDS: BENZTROPINE MESYLATE (1 MG) 1 MG TABLET PO SCH ×2 (09:20→16:36)
[2020-05-10] MEDS: methylPREDNISolone SOD SUCC 40 MG/ML VIAL IV SCH (09:20)
[2020-05-10] MEDS: LITHIUM CARBONATE 150 MG CAPSULE PO SCH (09:20)
[2020-05-10] MEDS: DOXYCYCLINE HYCLATE (100 MG) 100 MG TABLET PO SCH (09:20)
[2020-05-10] MEDS: CIPROFLOXACIN HCL 0.3% 5 ML BOTTLE RIGHTEYE SCH ×2 (09:21→16:37)
[2020-05-10] MEDS: IV NS 0.9% 1,000 ML IV PRN (09:40)
[2020-05-10 16:00] VITALS: BP 152/97
[2020-05-10] MEDS: DOCUSATE SODIUM 100 MG CAPSULE PO SCH (17:07)
--- NOTE | 2020-05-10 19:00 | NUR ---
MS RN NOTES PATIENT IN BED ALERT ORIENTED X 1 . NO ACUTE DISTRESS NOTED. BREATHING UNLABORED. NO SOB NOTED. IV ACCESS PATENT AND INTACT, NO REDNESS, NO BLEEDING, NO SWELLING NOTED. NEEDS ATTENDED AND ANTICIPATED. SAFETY MEASURES IN PLACE. CALL LIGHT WITHIN REACH. PATIENT FOR DISCHARGE TO [facility] , REPORT GIVEN TO URI BRITT, AWAITING FOR REFINERY TECHNICIAN. WILL ENDORSE TO NIGHT NURSE FOR CONTINUITY OF CARE AND DISCHARGE.
--- NOTE | 2020-05-10 19:00 | NUR ---
MS BALWINDER NOTES PATIENT IN BED ALERT ORIENTED X 3 . NO ACUTE DISTRESS NOTED. BREATHING UNLABORED. NO SOB NOTED. IV ACCESS PATENT AND INTACT, NO REDNESS, NO BLEEDING, NO SWELLING NOTED. NEEDS ATTENDED AND ANTICIPATED. SAFETY MEASURES IN PLACE. CALL LIGHT WITHIN REACH. PATIENT FOR DISCHARGE TO [facility] , REPORT GIVEN TO URI BRITT, AWAITING FOR RESPIRATORY THERAPY ASSISTANT. WILL ENDORSE TO NIGHT NURSE FOR CONTINUITY OF CARE AND DISCHARGE. Addendum: 05/10/20 at 1939 by ANDRAE BAIRD RN DISREGARD ABOVE NOTES: ERROR
[2020-05-10] MEDS: CEFTRIAXONE 1 G in IV D5W 50 ML IV SCH (19:44)
[2020-05-10 20:00] VITALS: BP 152/66
--- NOTE | 2020-05-10 20:29 | NUR ---
DC NOTES: AMBULANCE CAME TO [facility]N DOOR [facility]ILDER PT. PT DC TO [facility], REPORT GIVEN BY DAY RN JI TO BALWINDER GREWAL PT GOING TO RM 104-A. ALL DC PAPER WORKS SIGNED, COMPLETED BY DAY RN, INVENTORY OF BELONGINGS COMPLETED AND SIGNED. ALL DC PAPER WORKS AND MED RECON HANDED OVER TO EMT/PARAMEDICS. PT WILL BE GOING TO [facility] WITH HARRIETT MIDLINE FOR IV ATB THERAPY. HARRIETT MIDLINE PATENT AND FLUSHING WELL ON HL. NO S/S OF IV INFILTRATION NOTED. ARMBAND REMOVED. VS TAKEN AND RECORDED. FAMILY AWARE OF PT'S DISCHARGE. CONTACTED [place] THAT PT RECEIVED HER DOSE OF ROCEPHIN PRIOR TO EMT KILN DOOR BUILDER. PT LEFT THE UNIT IN STABLE CONDITION, MEDICALLY CLEARED FOR DC BY MD. LEFT THE UNIT VIA AMBULANCE.
== END 2020-05-10 20:25 | DRG 602 ==
LOC: ER 13:10 → MEDSG2 14:49 → TELE2 15:35 → CSC2 05-07 17:45 → MED 05-07 18:10 → TELE 05-07 20:59 → MED 05-08 12:09
PROVIDERS: ADMIT Internal Medicine; ATTEND Internal Medicine
PROC: 05HB33Z Insertion of Infusion Device into Right Basilic Vein, Percutaneous Approach (ICD-10-PCS; principal; 2020-05-09)
DX: L03.211 Cellulitis of face (principal); N17.0 Acute kidney failure with tubular necrosis; B02.30 Zoster ocular disease, unspecified; G93.40 Encephalopathy, unspecified; F29 Unspecified psychosis not due to a substance or known physiological condition; F31.9 Bipolar disorder, unspecified; R53.1 Weakness; B95.62 Methicillin resistant Staphylococcus aureus infection as the cause of diseases classified elsewhere; I12.9 Hypertensive chronic kidney disease with stage 1 through stage 4 chronic kidney disease, or unspecified chronic kidney disease; N18.9 Chronic kidney disease, unspecified; F41.9 Anxiety disorder, unspecified; F20.9 Schizophrenia, unspecified; E78.5 Hyperlipidemia, unspecified; F03.90 Unspecified dementia, unspecified severity, without behavioral disturbance, psychotic disturbance, mood disturbance, and anxiety; Z87.440 Personal history of urinary (tract) infections
CPT/HCPCS: 36415; 80048-TC; 80053-TC; 80061-TC; 80202-TC; 81000-TC; 82550-TC; 82553; 82570-TC; 82962-TC; 83735-TC; 83970; 84100-TC; 84155; 84155-TC; 84165; 84300-TC; 85025-TC; 87070-TC; 87081-TC; G0378; J0133; J0690; J0696; J2920; J3370; J7030; J7050; J7060; U0003-CS

== ENCOUNTER 2020-05-17 18:56 | Inpatient (IN) | payer MEDICARE, OTHER ==
[~2020-05-17] VITALS: Ht 167.6 cm; Wt 51.3 kg
[~2020-05-17 18:56] MED LIST changes: +ACYC500V2 IV; -BENZ1TAB7 PO; -BISA10SU11 RC; +CEFT1VIA15 IV; +COGENTIN PO; -MAGN400O6 PO; +METH4TAB17 PO; -NA P133E RC; -ONDA4TAB5 PO; +VANC1FRO2 IV
--- NOTE | 2020-05-17 19:20 | NUR ---
PT BIBPA SENT BY PMD FROM [facility] C/O ABNORMAL LABS NA-185, BUN-51, CREAT-1.9. PT AAOX1, RESPONSIVE TO MECHANICAL STIMULUS, RESPIRATIONS EVEN AND UNLABORED ON RA W/ NAD NOTED. PT CONNECTED TO THE DRIVEWAY ATTENDANT AND POX
--- NOTE | 2020-05-17 21:27 | NUR ---
EKG AT BEDSIDE
--- NOTE | 2020-05-17 21:28 | NUR ---
CALLED LAB FOR COVID SWAB
--- NOTE | 2020-05-17 21:45 | NUR ---
COVID SWAB COLLECTED AND SENT TO THE LAB.
--- NOTE | 2020-05-17 21:59 | NUR ---
NOTIFIED OF URINE 1100ML.
[2020-05-17 22:10] LABS: BASOPHILS % (AUTO) 0.2 % (0.0-2.0); EOSINOPHILS % (AUTO) 0.4 % (0.0-6.0); HEMATOCRIT 46 % (33-45); HEMOGLOBIN 15.2 g/dL (11.5-14.8); LYMPHOCYTES # (AUTO) 1.6 /CMM (0.8-4.8); LYMPHOCYTES % (AUTO) 14.9 % (20.0-44.0); MEAN CORPUSCULAR HGB CONC 33 g/dl (31.0-36.0); MEAN CORPUSCULAR VOLUME 94 fL (82-100); MONOCYTES # (AUTO) 0.7 /CMM (0.1-1.30); MONOCYTES % (AUTO) 6.4 % (2.0-12.0); NEUTROPHILS # (AUTO) 8.5 /CMM (1.8-8.9); NEUTROPHILS % (AUTO) 78.1 % (43.0-81.0); PLATELET COUNT (AUTO) 285 /CMM (150-450); RED BLOOD CELL COUNT(AUTO) 4.92 MIL/uL (4.0-5.2); WHITE BLOOD COUNT (AUTO) 10.9 K/uL (4.3-11.0)
[2020-05-17 22:18] LABS: APPEARANCE,URINE Clear (CLEAR); BILIRUBIN,URINE Negative (NEGATIVE); BLOOD, URINE Trace-lysed Ery/uL (NEGATIVE); COLOR,URINE Yellow (YELLOW); KETONES,URINE Negative (NEGATIVE); LEUKOCYTE ESTERASE ,URINE Negative (NEGATIVE); NITRITE, URINE Negative (NEGATIVE); PH,URINE 5.5 (5.0-8.0); PROTEIN,URINE Negative (NEGATIVE); UGLUCOSE Negative (NEGATIVE); UROBILINOGEN,URINE 0.2 EU/dL (0.2)
[2020-05-17 22:33] LABS: BACTERIA,URINE Few /HPF (None Seen); RBC,URINE 0-2 /HPF (0-2); SQUAMOUS EPITHELIAL CELL,UR Few /HPF (None Seen); WBC,URINE 0-2 /HPF (0-3)
--- NOTE | 2020-05-17 22:40 | NUR ---
RT AT BEDSIDE FOR ABG
[2020-05-17 22:49] LABS: ABG BASE EXCESS -4.4 mmol/L; ABG OXYGEN SATURATION 94.7 % (92.0-98.5); ABG PCO2 28.3 mmHg (35.0-45.0); ABG PO2 77.8 mmHg (75.0-100.0); COHb 0.7 % (0.5-1.5); MetHb 0.3 % (0.0-1.5); O2Hb 93.8 % (94.0-97.0); SITE, ABG Right Radial; VENT MODE, BG Room Air
[2020-05-17 22:55] LABS: ALBUMIN 3.4 g/dL (3.4-5.0); BILIRUBIN,DIRECT 0.3 mg/dL (0.0-0.2); CREATININE 2.5 mg/dL (0.6-1.3); TOTAL PROTEIN, SERUM 7.3 g/dL (6.4-8.2)
[2020-05-17 22:57] LABS: CALCIUM, SERUM 15.8 mg/dL (8.5-10.1)
[2020-05-17] MEDS ORDERED: IV NS 0.9% 1,000 ML BAG IV ONE (23:00)
--- NOTE | 2020-05-17 23:00 | NUR ---
dr montes paged per dr magaña.
[2020-05-17 23:41] LABS: THYROID STIMULATING HORMONE 0.525 uIU/mL (0.358-3.74)
[2020-05-18] VITALS (58 sets, daily range): BP systolic 48–182; BP diastolic 14–120
[2020-05-18] MEDS ORDERED: IV NS 0.9% 1,000 ML BAG IV ONE
[2020-05-18] MEDS ORDERED: ZOLPIDEM TARTRATE 5 MG TABLET PO PRN (01:00)
[2020-05-18] MEDS ORDERED: ONDANSETRON HCL/PF 4 MG/2 ML VIAL IVP PRN (01:00)
[2020-05-18] MEDS ORDERED: MAG HYDROX/AL HYDROX/SIMETH 30 ML UDC PO PRN (01:00)
[2020-05-18] MEDS ORDERED: hydrALAZINE HCL 25 MG TABLET PO PRN (01:00)
[2020-05-18] MEDS ORDERED: Z GUARD REMEDY 2 OZ OINT TP PRN (01:00)
[2020-05-18] MEDS ORDERED: ACETAMINOPHEN 325 MG TABLET PO PRN ×2 (01:00)
--- NOTE | 2020-05-18 01:00 | NUR ---
Received report from BALWINDER Rivers
[2020-05-18] MEDS ORDERED: IV NS 0.9% 1,000 ML IV PRN (01:30)
--- NOTE | 2020-05-18 01:35 | NUR ---
PORCELAIN ENAMEL REPAIRER NOTE: Pt transferred to unit via gurney accompanied by RN and EMT. Transferred to bed, hooked up to monitors, bed bath given. Pt A&Ox1, responding to tactile stimuli. On room air, O2 sat WNL. SB on tele monitor. Skin assessment done. HARRIETT midline patent and flushed. Dressing c/d/i. NS started at 125ml/hr. IV site on right thumb #22 patent and flushed. Dressing c/d/i. 14Fr garcia catheter inserted. VS: BP 153/87, P 45, O2 96%, RR 20, T 98.0. Safety measures in place. Will continue to monitor.
--- NOTE | 2020-05-18 01:38 | NUR ---
PT TRANSFERRED TO ICU VIA ACLS PROTOCOL
--- NOTE | 2020-05-18 03:15 | NUR ---
RN NOTE: Pt HR noted to drop to 37-39. Then went back up to low 40s. Charge nurse Ed made aware. Will continue to monitor. Addendum: 05/18/20 at 0509 by ABBY CAPONE RN Charge nurse said he will order cardio consult for pt.
[2020-05-18 05:22] LABS: BASOPHILS % (AUTO) 0.4 % (0.0-2.0); EOSINOPHILS % (AUTO) 0.5 % (0.0-6.0); HEMATOCRIT 43 % (33-45); HEMOGLOBIN 13.4 g/dL (11.5-14.8); LYMPHOCYTES # (AUTO) 1.8 /CMM (0.8-4.8); LYMPHOCYTES % (AUTO) 19.7 % (20.0-44.0); MEAN CORPUSCULAR HGB CONC 31 g/dl (31.0-36.0); MEAN CORPUSCULAR VOLUME 99 fL (82-100); MONOCYTES # (AUTO) 0.6 /CMM (0.1-1.30); MONOCYTES % (AUTO) 6.2 % (2.0-12.0); NEUTROPHILS # (AUTO) 6.6 /CMM (1.8-8.9); NEUTROPHILS % (AUTO) 73.2 % (43.0-81.0); PLATELET COUNT (AUTO) 225 /CMM (150-450); RED BLOOD CELL COUNT(AUTO) 4.37 MIL/uL (4.0-5.2)
[2020-05-18 05:32] LABS: ALBUMIN 2.9 g/dL (3.4-5.0); BILIRUBIN,TOTAL 0.7 mg/dL (0.2-1.0); CREATININE 2.2 mg/dL (0.6-1.3); MAGNESIUM 3.4 mg/dL (1.8-2.4); PHOSPHORUS 2.9 mg/dL (2.5-4.9); POTASSIUM 3.2 mmol/L (3.5-5.1); TOTAL PROTEIN, SERUM 6.2 g/dL (6.4-8.2)
[2020-05-18 05:38] LABS: CALCIUM, SERUM 13.2 mg/dL (8.5-10.1)
--- NOTE | 2020-05-18 05:59 | NUR ---
RN NOTE: Rec'd critical labs Na: 185, K: 3.2, Cl: 153 and Ca: 13.2. 0555: Paged Dr. Damian and rec'd orders for 20meq of Potassium. Order noted and carried out.
[2020-05-18] MEDS: POTASSIUM CL. PREMIX PERIPHER. 50 ML IV SCH ×2 (06:19→07:38)
[2020-05-18] MEDS ORDERED: IV NS 0.9% 250 ML IV PRN (06:30)
--- NOTE | 2020-05-18 06:30 | NUR ---
RN NOTE: Pt pulled out IV on right thumb. Pressure applied, minimal bleeding noted, extremity elevated. Will continue to monitor.
--- NOTE | 2020-05-18 06:35 | NUR ---
RN NOTE: Dr. Damian on floor. Made him aware of pt's HR. Gave orders for stat EKG and cardio consult. Orders noted and carried out.
--- NOTE | 2020-05-18 06:53 | NUR ---
RN CLOSING NOTES: Pt remains in stable condition. On room air, O2 sat WNL. No SOB or resp distress noted. Breathing even and unlabored. A&Ox1, responding to name and light touch. Junctional bradycardia w/ HR 37 on tele monitor. HARRIETT midline patent and flushed w/ NS infusing at 125ml/hr and first bag of KCl infusing at 50ml/hr. Johnston in place, patent and draining urine via gravity. Kept clean/dry. Safety measures in place. Will endorse to oncoming nurse for CHARMAINE.
[2020-05-18] MEDS ORDERED: PANTOPRAZOLE 40 MG TABLET.DR PO SCH (07:30)
[2020-05-18] MEDS: IV 1/2NS 1000 ML 1,000 ML IV PRN ×3 (07:33→20:43)
--- NOTE | 2020-05-18 08:46 | NUR ---
received pt from manufacturing shift supervisor, drowsy, confused, does not follows commands, non communicative, SB 35- 42 aware, RA sat well, no edema, NPO, f/c good output, v/s stable, no pain, pt turns and repositions by herself.
[2020-05-18] MEDS: ASPIRIN 81 MG TAB.CHEW PO SCH (09:00)
[2020-05-18] MEDS: BENZTROPINE MESYLATE (1 MG) 1 MG TABLET PO SCH ×2 (09:00→17:00)
[2020-05-18] MEDS: ENOXAPARIN SODIUM 30 MG/0.3 ML DISP.SYRIN SQ SCH (09:41)
[2020-05-18 11:50] LABS: CALCIUM, SERUM 12.9 mg/dL (8.5-10.1); CREATININE 1.8 mg/dL (0.6-1.3); POTASSIUM 3.4 mmol/L (3.5-5.1)
--- NOTE | 2020-05-18 16:28 | NUR ---
pt is resting in the bed, confused, does not follow commands, SB, sat well on RA, NPO, no BM, f/c good urine output, v/s stable, no pain, pt cleaned and changed.
[2020-05-18] MEDS ORDERED: DOCUSATE SODIUM 100 MG CAPSULE PO SCH (18:00)
--- NOTE | 2020-05-18 19:30 | NUR ---
RN OPENING NOTES: Rec'd pt in bed, confused and does not follow commands. On room air, O2 sat WNL. No SOB or resp distress noted. Breathing even and unlabored. Junctional bradycardia on tele monitor. HARRIETT midline patent and flushed. Dressing c/d/i. 1/2NS infusing at 150ml/hr. Johnston catheter in place, patent and draining urine via gravity. Safety measures in place. Will continue to monitor.
[2020-05-18] MEDS: risperiDONE 0.25 MG TABLET PO SCH (22:00)
[2020-05-18] MEDS ORDERED: FENOFIBRATE NANOCRYS (145 MG) 145 MG TABLET PO SCH (22:00)
[2020-05-19] VITALS (25 sets, daily range): BP systolic 104–184; BP diastolic 38–95
[2020-05-19] MEDS: IV 1/2NS 1000 ML 1,000 ML IV PRN ×3 (03:30→18:06)
[2020-05-19 05:21] LABS: BASOPHILS % (AUTO) 0.6 % (0.0-2.0); EOSINOPHILS % (AUTO) 1.6 % (0.0-6.0); HEMATOCRIT 34 % (33-45); HEMOGLOBIN 11.5 g/dL (11.5-14.8); LYMPHOCYTES # (AUTO) 1.3 /CMM (0.8-4.8); LYMPHOCYTES % (AUTO) 16.3 % (20.0-44.0); MEAN CORPUSCULAR HGB CONC 34 g/dl (31.0-36.0); MEAN CORPUSCULAR VOLUME 94 fL (82-100); MONOCYTES # (AUTO) 0.3 /CMM (0.1-1.30); MONOCYTES % (AUTO) 4.1 % (2.0-12.0); NEUTROPHILS # (AUTO) 6.3 /CMM (1.8-8.9); NEUTROPHILS % (AUTO) 77.4 % (43.0-81.0); PLATELET COUNT (AUTO) 187 /CMM (150-450); RED BLOOD CELL COUNT(AUTO) 3.65 MIL/uL (4.0-5.2); WHITE BLOOD COUNT (AUTO) 8.2 K/uL (4.3-11.0)
[2020-05-19 05:26] LABS: CALCIUM, SERUM 11.4 mg/dL (8.5-10.1); CREATININE 1.2 mg/dL (0.6-1.3); MAGNESIUM 2.6 mg/dL (1.8-2.4); PHOSPHORUS 2.6 mg/dL (2.5-4.9)
[2020-05-19 05:47] LABS: POTASSIUM 2.7 mmol/L (3.5-5.1)
--- NOTE | 2020-05-19 06:27 | NUR ---
RN NOTE: Rec'd critical labs: Na 174, K, 2.7, Cl 141. 0620: Paged Dr. Damian [phone]: Spoke w/ conveyor line bakery worker MD Dr Pinon. Gave orders for 40meq Potassium, recheck K, and anticipate another 40meq Potassium. And 500ml of D5 water. TORB, noted and carried out.
[2020-05-19] MEDS ORDERED: IV D5W 1,000 ML IV ONE (06:30)
--- NOTE | 2020-05-19 06:58 | NUR ---
VENDING STAND SUPERVISOR CLOSING NOTES: Pt remains stable throughout shift. Remains on room air, O2 sat WNL. No SOB or resp distress noted. Breathing even and unlabored. Sinus chayito/junctional on tele monitor. HARRIETT midline w/ 1/2NS infusing at 150ml/hr. Johnston in place patent and draining urine via gravity. Kept clean/dry. Safety measures in place. Will endorse to oncoming nurse for CHARMAINE.
[2020-05-19] MEDS ORDERED: IV D5W 500 ML IV ONE (07:00)
[2020-05-19] MEDS: POTASSIUM CL. PREMIX PERIPHER. 50 ML IV SCH ×8 (09:41→19:16)
[2020-05-19 10:21] LABS: THYROID STIMULATING HORMONE 0.773 uIU/mL (0.358-3.74)
[2020-05-19] MEDS: PANTOPRAZOLE 40 MG/PACK PACK GT SCH (12:08)
[2020-05-19] MEDS: ASPIRIN 81 MG TAB.CHEW PO SCH (12:08)
[2020-05-19] MEDS: BENZTROPINE MESYLATE (1 MG) 1 MG TABLET PO SCH ×2 (12:09→18:49)
[2020-05-19] MEDS: BLOOD SUGAR DIAGNOSTIC 1 EACH STRIP IN SCH ×2 (12:09→18:48)
[2020-05-19] MEDS: ENOXAPARIN SODIUM 30 MG/0.3 ML DISP.SYRIN SQ SCH (12:10)
--- NOTE | 2020-05-19 12:16 | NUR ---
blood glucose 63 - 2 juice box of MATTHEW given
[2020-05-19 13:04] LABS: CALCIUM, SERUM 11.2 mg/dL (8.5-10.1); CREATININE 1.3 mg/dL (0.6-1.3); POTASSIUM 3.1 mmol/L (3.5-5.1)
[2020-05-19] MEDS: DOCUSATE SODIUM LIQ 100 MG/10 ML UDC NG SCH (18:49)
[2020-05-19] MEDS: IV D5W 1,000 ML IV PRN (20:17)
[2020-05-19] MEDS ORDERED: NEPRO 1,000 ML BOTTLE GT PRN (20:30)
[2020-05-19] MEDS: risperiDONE 0.25 MG TABLET PO SCH (22:00)
[2020-05-19 23:21] LABS: CALCIUM, SERUM 10.4 mg/dL (8.5-10.1); CREATININE 1.1 mg/dL (0.6-1.3); POTASSIUM 3.2 mmol/L (3.5-5.1)
[2020-05-20] VITALS (16 sets, daily range): BP systolic 96–160; BP diastolic 50–95
[2020-05-20] MEDS: BLOOD SUGAR DIAGNOSTIC 1 EACH STRIP IN SCH ×4 (00:28→17:15)
[2020-05-20] MEDS: POTASSIUM CL. PREMIX PERIPHER. 50 ML IV SCH ×2 (00:29→01:52)
[2020-05-20 05:07] LABS: BASOPHILS % (AUTO) 0.5 % (0.0-2.0); EOSINOPHILS % (AUTO) 2.5 % (0.0-6.0); HEMATOCRIT 35 % (33-45); HEMOGLOBIN 11.6 g/dL (11.5-14.8); LYMPHOCYTES # (AUTO) 1.3 /CMM (0.8-4.8); LYMPHOCYTES % (AUTO) 15.9 % (20.0-44.0); MEAN CORPUSCULAR HGB CONC 33 g/dl (31.0-36.0); MEAN CORPUSCULAR VOLUME 93 fL (82-100); MONOCYTES # (AUTO) 0.3 /CMM (0.1-1.30); MONOCYTES % (AUTO) 4.3 % (2.0-12.0); NEUTROPHILS # (AUTO) 6.2 /CMM (1.8-8.9); NEUTROPHILS % (AUTO) 76.8 % (43.0-81.0); PLATELET COUNT (AUTO) 178 /CMM (150-450); RED BLOOD CELL COUNT(AUTO) 3.74 MIL/uL (4.0-5.2)
[2020-05-20 05:27] LABS: CALCIUM, SERUM 10.4 mg/dL (8.5-10.1); CREATININE 1.1 mg/dL (0.6-1.3); MAGNESIUM 2.6 mg/dL (1.8-2.4); PHOSPHORUS 1.5 mg/dL (2.5-4.9); POTASSIUM 3.3 mmol/L (3.5-5.1)
--- NOTE | 2020-05-20 07:30 | NUR ---
RN opening NOTES: Received pt in bed .On room air, O2 sat WNL. No SOB or resp distress noted. Breathing even and unlabored. A&Ox1, responding to name and light touch only in the morning . Junctional bradycardia w/ HR 42 on tele monitor. HARRIETT midline patent and flushed w/ D5 % dextrose running @ 75 ml/hr . Johnston in place, patent and draining urine via gravity. Safety measures are implemented b hospital policy. call light within the reach. bed is in the lowest position and side rails are up x2. will continue to monitor
--- NOTE | 2020-05-20 07:41 | NUR ---
MOBILE NURSE note Patient remains lethargic, not opening eyes. Sometimes follows command. Room air SPO2 >95%, no SOB or distress, RR 23, even and unlabored. L NGT 65@nare in place verified via auscultation, aspiration. Johnston drained 2500 pale urine. HARRIETT midline D5W @75mL/hr. Tele attached, patient chayito junctional HR 30s-40s , no pauses noted. BP stable. No fevers. Family asking about head MRI. Orders for Nephro placed, however, patient moves around, concerned for aspiration. At shift end the feeding is not running - report given to Ivonne BRITT
--- NOTE | 2020-05-20 08:09 | NUR ---
WOUND CARE CONSULT: PT PRESENTS WITH DRY LESIONS AND DISCOLORATION TO FOREHEAD AREA, LEFT ELBOW ABRASION AND RASH TO LOWER BUTTOCKS, PRESENT ON ADMISSION. PT IS INCONTINENT OF LOOSE STOOL. RECOMMENDATIONS MADE FOR SKIN PROTECTION. DISCUSSED WITH NURSING STAFF. DEFER TO MD FOR FACIAL LESIONS WHICH ARE DRY. PT IS ON [place] ISOFLEX LOW AIRLOSS BED. WILL SEE PRMoshe. MD IN AGREEMENT WITH PLAN OF CARE. Addendum: 05/20/20 at 0812 by PACHECO LUGO WNDNU Amended: Links added.
[2020-05-20] MEDS: CLOTRIMAZOLE 1% 15 GM TUBE TP SCH ×2 (08:52→17:17)
[2020-05-20] MEDS: POTASSIUM PHOSPHATE MM 7.5 MMOL in IV NS 0.9% 100 ML IV SCH ×2 (09:01→12:25)
[2020-05-20] MEDS: ASPIRIN 81 MG TAB.CHEW PO SCH (09:01)
[2020-05-20] MEDS: PANTOPRAZOLE 40 MG/PACK PACK GT SCH (09:01)
[2020-05-20] MEDS: ENOXAPARIN SODIUM 30 MG/0.3 ML DISP.SYRIN SQ SCH (09:02)
[2020-05-20] MEDS: BENZTROPINE MESYLATE (1 MG) 1 MG TABLET PO SCH (09:02)
[2020-05-20] MEDS: IV D5W 1,000 ML IV PRN ×2 (09:06→21:00)
[2020-05-20 12:05] LABS: APPEARANCE,URINE SL CLOUDY (CLEAR); BILIRUBIN,URINE NEGATIVE (NEGATIVE); BLOOD, URINE LARGE Ery/uL (NEGATIVE); COLOR,URINE YELLOW (YELLOW); KETONES,URINE NEGATIVE (NEGATIVE); LEUKOCYTE ESTERASE ,URINE NEGATIVE (NEGATIVE); NITRITE, URINE NEGATIVE (NEGATIVE); PROTEIN,URINE NEGATIVE (NEGATIVE); UGLUCOSE NEGATIVE (NEGATIVE); UROBILINOGEN,URINE 0.2 EU/dL (0.2)
[2020-05-20 13:01] LABS: CREATININE, URINE 50.9 MG/DL (30.0-125.0); URINE TOTAL PROTEIN 14.5 mg/dL (0-11.9)
[2020-05-20 13:18] LABS: BACTERIA,URINE Rare /HPF (None Seen); SQUAMOUS EPITHELIAL CELL,UR Rare /HPF (None Seen); WBC,URINE 0-2 /HPF (0-3); YEAST,URINE Many /HPF (None Seen)
[2020-05-20 13:19] LABS: RBC,URINE 21-50 /HPF (0-2)
--- NOTE | 2020-05-20 14:15 | NUR ---
TELE/RN NOTE Patient transferred to room safely via bed. Responsive to tactile and verbal stimulation by opening eyes and moaning. Breathing even and non-labored on RA. No respiratory or cardiac distress noted. On tele monitor, reading SB 43. No s/s of pain/discomfort noted. HARRIETT midline in place, patent and intact, and running D5W @ 75 mls/hr. Bilateral hand mittens in place, sensation and circulation intact. NG tube in right nare in place, patent and intact, no gastric distress, running nephro @ 30 mls/hr. Bed locked to its lowest position, bed alarm on, call light in reach. Will continue current medical management.
--- NOTE | 2020-05-20 14:23 | NUR ---
RN NOTES GAVE REPORT TO BRAXTON. TRANSFERRED PT TO 311 BED 1 . PT VS WNL. HER HR BASELINE IS 40.TRANSFERRED WITH ACLS PROTOCOL. TOOK HER MEDS, CHART AND IV'S. BRAXTON WILL CONTINUE TO MONITOR
[2020-05-20 14:47] LABS: EOSINOPHIL,URINE None Seen
[2020-05-20] MEDS: DOCUSATE SODIUM LIQ 100 MG/10 ML UDC NG SCH (17:16)
--- NOTE | 2020-05-20 18:30 | NUR ---
MS/RN NOTE Patient pulled out NG tube with mittens, reinserted a new one in right nare and ordered CXR to confirm placement.
--- NOTE | 2020-05-20 19:05 | NUR ---
SYSTEMS TEST ENGINEER OPENING NOTES RECEIVED PATIENT IN BED SLEEPING EASILY AROUSABLE RESPIRATIONS EVEN AND UNLABORED WITH EQUAL RISE AND FALL OF CHEST, APPEARS FREE OF ANY PAIN OR DISCOMFORT AT THIS TIME, HEAD OF BED ELEVATED FOR ASPIRATION PRECAUTIONS, RIGHT UPPER ARM MIDLINE INTACT AND PATENT, NO REDNESS, NO INFILTRATION PRESENT, IVF RUNNING ORDERED, SAFETY PRECAUTIONS RENDERED LOW BED AND LOCKED, ALL NEEDS ATTENDED AT THIS TIME, ORIENTED TO STAFF AND CALL LIGHT AND KEPT WITHIN REACH, WILL CONTINUE TO MONITOR AND ATTEND TO NEEDS REMAINS COMFORTABLE. NGT IN PLACE, BILATERAL HAND MITTENS IN PLACE,SKIN ASSESSED WNL , PULSES PALPABLE. WILL CONTINUE TO MONITOR TELE MONITOR IN PLACE, SB 42.
--- NOTE | 2020-05-20 19:44 | NUR ---
TELE/RN CLOSING NOTE Patient resting in bed, responsive to tactile and verbal stimulation by opening eyes and moaning. All needs met and attended to. Breathing even and non-labored on RA. No respiratory or cardiac distress noted. On tele monitor, reading SB 42. No s/s of pain/discomfort noted. HARRIETT midline in place, patent and intact, and running D5W @ 75 mls/hr. Bilateral hand mittens in place, sensation and circulation intact. NG tube in right nare in place, awaiting CXR for placement. Fall precautions maintained. Will endorse to operation shift supervisor nurse.
[2020-05-20] MEDS: risperiDONE 0.25 MG TABLET PO SCH (21:03)
[2020-05-21] VITALS: BP 106/43
[2020-05-21 00:02] VITALS: BP 106/43
[2020-05-21] MEDS: BLOOD SUGAR DIAGNOSTIC 1 EACH STRIP IN SCH ×4 (00:08→17:35)
[2020-05-21] MEDS: NEPRO 1,000 ML BOTTLE GT PRN (03:45)
[2020-05-21 04:00] VITALS: BP 100/43
[2020-05-21 04:23] VITALS: BP 104/61
--- NOTE | 2020-05-21 06:33 | NUR ---
DIRECTOR TECHNICAL CLOSING NOTES PATIENT IN BED SLEEPING EASILY AROUSABLE RESPIRATIONS EVEN AND UNLABORED WITH EQUAL RISE AND FALL OF CHEST, APPEARS FREE OF ANY PAIN OR DISCOMFORT AT THIS TIME, HEAD OF BED ELEVATED FOR ASPIRATION PRECAUTIONS, RIGHT UPPER ARM MIDLINE INTACT AND PATENT, NO REDNESS, NO INFILTRATION PRESENT, IVF RUNNING ORDERED, SAFETY PRECAUTIONS RENDERED LOW BED AND LOCKED, PLACEMENT CONFIRMED TO LEFT NARE NGT. TOLERATING FEEDING WELL NO RESIDUALS NOTED, WOUND CARE DONE ORDERED, ALL NEEDS ATTENDED AT THIS TIME, CALL LIGHT KEPT WITHIN REACH, WILL CONTINUE TO MONITOR AND ATTEND TO NEEDS REMAINS COMFORTABLE. BILATERAL HAND MITTENS IN PLACE,SKIN ASSESSED WNL , PULSES PALPABLE. WILL CONTINUE TO MONITOR TELE MONITOR IN PLACE, SB 43. NO DISTRESS PRESENT REMAINS COMFORTABLE.
[2020-05-21 06:47] LABS: CALCIUM, SERUM 10.2 mg/dL (8.5-10.1); CREATININE 1.1 mg/dL (0.6-1.3); MAGNESIUM 2.8 mg/dL (1.8-2.4); PHOSPHORUS 1.8 mg/dL (2.5-4.9)
[2020-05-21 07:15] LABS: BASOPHILS % (AUTO) 0.4 % (0.0-2.0); EOSINOPHILS % (AUTO) 2.2 % (0.0-6.0); HEMATOCRIT 43 % (33-45); HEMOGLOBIN 13.7 g/dL (11.5-14.8); LYMPHOCYTES # (AUTO) 1.2 /CMM (0.8-4.8); LYMPHOCYTES % (AUTO) 14.1 % (20.0-44.0); MEAN CORPUSCULAR HGB CONC 32 g/dl (31.0-36.0); MEAN CORPUSCULAR VOLUME 95 fL (82-100); MONOCYTES # (AUTO) 0.3 /CMM (0.1-1.30); MONOCYTES % (AUTO) 3.3 % (2.0-12.0); NEUTROPHILS # (AUTO) 6.9 /CMM (1.8-8.9); PLATELET COUNT (AUTO) 164 /CMM (150-450); RED BLOOD CELL COUNT(AUTO) 4.54 MIL/uL (4.0-5.2); WHITE BLOOD COUNT (AUTO) 8.6 K/uL (4.3-11.0)
--- NOTE | 2020-05-21 07:30 | NUR ---
RN Opening Note Received patient in bed, sleeping, able to responds all stimuli, does no appears pain or distress. Respiratory even and unlabored on room air, no sob, distress observed, HR 47 with sinus from monitor. Skin is warm to touch, keep clean/dry, intact midline on right upper arm running D5W at 75 ml/hr, keep intact NG tube running nephro at 30ml/hr. Kept locked bed with lowest position, bed alarm on all times for safety, and elevated HOB for ensure airway and aspiration precaution. Call light within reach, will continue to monitor.
[2020-05-21] MEDS: PANTOPRAZOLE 40 MG/PACK PACK GT SCH (09:18)
[2020-05-21] MEDS: ASPIRIN 81 MG TAB.CHEW PO SCH (09:18)
[2020-05-21] MEDS: ENOXAPARIN SODIUM 30 MG/0.3 ML DISP.SYRIN SQ SCH (09:21)
[2020-05-21] MEDS: CLOTRIMAZOLE 1% 15 GM TUBE TP SCH ×2 (09:22→17:38)
[2020-05-21] MEDS: BENZTROPINE MESYLATE (1 MG) 1 MG TABLET NG SCH ×2 (09:22→17:35)
[2020-05-21] MEDS: IV D5W 1,000 ML IV PRN (09:35)
[2020-05-21] MEDS ORDERED: POTASSIUM CHLORIDE 20 MEQ TAB.PRT.SR PO SCH (10:00)
[2020-05-21] MEDS: POTASSIUM CHLORIDE 20 MEQ POWDER PACKET PO SCH ×3 (10:34→13:00)
[2020-05-21] MEDS: NEUTRA PHOS 1 POWD.PACKET PO SCH ×2 (10:34→17:38)
[2020-05-21] MEDS: FLUCONAZOLE IN NS 100 MG in PREMIX 1 EA IV SCH ×2 (11:48)
[2020-05-21] MEDS: DOCUSATE SODIUM LIQ 100 MG/10 ML UDC NG SCH (17:35)
--- NOTE | 2020-05-21 18:30 | NUR ---
RN Closing Note Patient in bed resting comfortably, does no appears pain or discomfort, skin is warm to touch, provided skin care and wound dressing change, intact midline site running D5w at 75ml/hr. Respiratory even and unlabored on room air, O2sat 98%. Kept locked bed with lowest position and elevated HOB for ensure airway and aspiration precaution, call light within reach, will endorse third shift lieutenant.
--- NOTE | 2020-05-21 19:40 | NUR ---
MS RN NOTE: PATIENT RESTING IN BED, NO ACUTE DISTRESS NOTED. BREATHING EVEN AND UNLABORED, NO SOB NOTED. MIDLINE TO HARRIETT IN PLACE, INFUSING D5W AT 75ML/HR. SADLER CATHETER IN PLACE, EMPTY AT THIS TIME. NG-TUBE TO LEFT NARE IN PLACE. HOB ELEVATED. BED LOCKED AND IN LOWEST POSITION, CALL LIGHT IN REACH. WILL CONTINUE TO MONITOR.
[2020-05-21 20:18] VITALS: BP 110/73
[2020-05-21] MEDS: risperiDONE 0.25 MG TABLET PO SCH (21:29)
[2020-05-22] MEDS: BLOOD SUGAR DIAGNOSTIC 1 EACH STRIP IN SCH ×4 (00:13→17:06)
--- NOTE | 2020-05-22 00:15 | NUR ---
MS RN NOTE: PATIENT BLOOD SUGAR LEVEL 95MG/DL, NO S/S OF HYPOGLYCEMIA NOTED. WILL CONTINUE TO MONITOR.
[2020-05-22] MEDS: IV D5W 1,000 ML IV PRN ×2 (00:17→13:09)
--- NOTE | 2020-05-22 06:10 | NUR ---
MS RN NOTE: PATIENT RESTING IN BED, NO ACUTE DISTRESS NOTED. BREATHING EVEN AND UNLABORED, NO SOB NOTED. MIDLINE TO HARRIETT IN PLACE, INFUSING D5W AT 75ML/HR. SADLER CATHETER IN PLACE. NG-TUBE TO LEFT NARE IN PLACE, INFUSING NEPHRO AT 30ML/HR. HOB ELEVATED. BLOOD SUGAR LEVEL 131MG/DL, NO S/S OF HYPER/HYPOGLYCEMIA NOTE. BED LOCKED AND IN LOWEST POSITION, CALL LIGHT IN REACH. WILL ENDORSE TO DAY NURSE TO CONTINUE WITH PLAN OF CARE.
--- NOTE | 2020-05-22 07:45 | NUR ---
MS/RN - Assessment Patient in bed lethargic, no s/s of pain, stable on room air, left nostril NGT in place, Nephro at 30 ml/hr, tolerating it well. IVF D5W at 75 ml/hr infusing well on the HARRIETT midline with no signs of infiltration. Johnston catheter draining yellow urine. Bilateral mittens in place to prevent pulling out NGT, Johnston, Midline. Fall and aspiration precautions maintained. Will continue with current medical management.
[2020-05-22 08:00] VITALS: BP 114/52
[2020-05-22 08:04] LABS: CALCIUM, SERUM 9.3 mg/dL (8.5-10.1); CREATININE 0.9 mg/dL (0.6-1.3); POTASSIUM 3.3 mmol/L (3.5-5.1)
[2020-05-22] MEDS: PANTOPRAZOLE 40 MG/PACK PACK GT SCH (08:13)
[2020-05-22] MEDS: ENOXAPARIN SODIUM 30 MG/0.3 ML DISP.SYRIN SQ SCH (08:13)
[2020-05-22] MEDS: BENZTROPINE MESYLATE (1 MG) 1 MG TABLET NG SCH ×2 (08:13→16:31)
[2020-05-22] MEDS: ASPIRIN 81 MG TAB.CHEW PO SCH (08:13)
[2020-05-22] MEDS: CLOTRIMAZOLE 1% 15 GM TUBE TP SCH ×2 (08:26→16:30)
[2020-05-22] MEDS ORDERED: POTASSIUM CHLORIDE 20 MEQ TAB.PRT.SR PO SCH (09:00)
[2020-05-22 09:26] LABS: MAGNESIUM 2.7 mg/dL (1.8-2.4); PHOSPHORUS 2.6 mg/dL (2.5-4.9)
[2020-05-22] MEDS: POTASSIUM CHLORIDE 20 MEQ POWDER PACKET NG SCH ×3 (09:48→12:33)
[2020-05-22] MEDS: FLUCONAZOLE IN NS 100 MG in PREMIX 1 EA IV SCH ×2 (11:59)
[2020-05-22 16:00] VITALS: BP 148/63
--- NOTE | 2020-05-22 16:00 | NUR ---
MS/RN - Notes Spoke with sister Juany and updated on pt's condition.
[2020-05-22] MEDS: DOCUSATE SODIUM LIQ 100 MG/10 ML UDC NG SCH (17:06)
--- NOTE | 2020-05-22 19:15 | NUR ---
MS/RN - End of shift summary No new events seen, more awake, tolerating tube feeding well, no s/s of pain, bilateral mittens in place. Dr. Walter made aware of sister's request for neuro consult. Dr. Meyers was notified. All needs attended. Endorsed to night RN for continuity of care.
--- NOTE | 2020-05-22 19:30 | NUR ---
MS/RN NOTES RECEIVED PATIENT IN BED. PATIENT IS ALERT AND ORIENTED X 0, OBTUNDED. PATIENT IS TOLERATING RA WELL. NO SIGNS OF SOB OR RESPIRATORY DISTRESS NOTED. PATIENT HAS NG TUBE IN PLACE ON LEFT NARES. PATIENT HAS IV ACCESS ON HARRIETT MIDLINE RUNNING D5W AT 75 ML/HR. SADLER CATH IS IN PLACE. PATIENT IS IN NOT SIGNS OF DISTRESS. SAFETY MEASURES ARE IN PLACE, BED IS LOCKED AND PLACED IN THE LOW POSITION, SIDE RAILS UP X3. CALL LIGHT WITHIN REACH. WILL CONTINUE TO MONITOR PATIENT THROUGH OUT SHIFT.
[2020-05-22 20:00] VITALS: BP 138/52
[2020-05-22] MEDS: risperiDONE 0.25 MG TABLET PO SCH (21:43)
[2020-05-23] MEDS: BLOOD SUGAR DIAGNOSTIC 1 EACH STRIP IN SCH ×5 (00:32→23:08)
[2020-05-23] MEDS: IV D5W 1,000 ML IV PRN ×2 (06:29→22:10)
--- NOTE | 2020-05-23 06:50 | NUR ---
MS/RN CLOSING NOTES PATIENT IN BED RESTING. PATIENT IS ALERT AND ORIENTED X 0, OBTUNDED. PATIENT IS TOLERATING RA WELL. NO SIGNS OF SOB OR RESPIRATORY DISTRESS NOTED. PATIENT HAS NG TUBE IN PLACE ON LEFT NARES RUNNING NEPHRO AT 30 ML/HR. PATIENT HAS IV ACCESS ON HARRIETT MIDLINE RUNNING D5W AT 75 ML/HR. SADLER CATH IS IN PLAC0. OUTPUT 1000CC. PATIENT IS IN NOT SIGNS OF DISTRESS. SAFETY MEASURES ARE IN PLACE, BED IS LOCKED AND PLACED IN THE LOW POSITION, SIDE RAILS UP X3. CALL LIGHT WITHIN REACH. WILL CONTINUE TO MONITOR PATIENT THROUGH OUT SHIFT.
[2020-05-23 06:55] LABS: CALCIUM, SERUM 9.5 mg/dL (8.5-10.1); CREATININE 0.9 mg/dL (0.6-1.3)
--- NOTE | 2020-05-23 07:45 | NUR ---
MS/RN - Assessment Patient in bed lethargic, no s/s of pain, stable on room air, left nostril NGT in place, no residual, Nepro at 30 ml/hr, tolerating it well. IVF D5W at 75 ml/hr infusing well on the HARRIETT midline with no signs of infiltration. Johnston catheter draining yellow urine. Bilateral mittens in place to prevent pulling out NGT, Johnston and Midline. See restraints flowsheet for further documentation. Labs reviewed, noted with potassium 2.8, notified Dr. Walter. Fall and aspiration precautions maintained. Neuro consult pending. Will continue with current medical management.
[2020-05-23 07:54] LABS: POTASSIUM 2.8 mmol/L (3.5-5.1)
[2020-05-23 08:00] VITALS: BP 124/67
[2020-05-23] MEDS: BENZTROPINE MESYLATE (1 MG) 1 MG TABLET NG SCH ×2 (08:29→17:29)
[2020-05-23] MEDS: ASPIRIN 81 MG TAB.CHEW PO SCH (08:30)
[2020-05-23] MEDS: ENOXAPARIN SODIUM 30 MG/0.3 ML DISP.SYRIN SQ SCH (08:30)
[2020-05-23] MEDS: PANTOPRAZOLE 40 MG/PACK PACK GT SCH (08:30)
[2020-05-23] MEDS: CLOTRIMAZOLE 1% 15 GM TUBE TP SCH ×2 (08:30→17:26)
[2020-05-23] MEDS: FLUCONAZOLE (100 MG) 100 MG TABLET GT SCH (08:44)
[2020-05-23] MEDS ORDERED: POTASSIUM CHLORIDE 20 MEQ TAB.PRT.SR PO SCH (10:00)
--- NOTE | 2020-05-23 10:00 | NUR ---
MS/RN - Notes Patient is awake and alert to name, verbally responsive, able to follow simple commands, reality orientation given. Called Juany Vaughn (sister) and patient was able to talk to her. Will continue to monitor closely.
--- NOTE | 2020-05-23 10:27 | NUR ---
RN MS NOTES POTASSIUM 20 MEQ 1 TAB ORDERED AND PULLED, CALLED PHARMACY FOR CHANGE D/T PT ON NGT WE NEED ORDER FOR POTASSIUM IN POWDER FORM. RETURNED TAB TO [facility]. AWAITING ORDER FOR POTASSIUM IN POWDER FORM TO ADMINISTER.
[2020-05-23] MEDS: POTASSIUM CHLORIDE 20 MEQ POWDER PACKET NG SCH ×5 (10:37→14:47)
--- NOTE | 2020-05-23 12:00 | NUR ---
MS/RN - Notes Dr. Rui Walter made aware that pt is more awake and alert, able to follow simple commands, appropriate for swallow evaluation. [facility] ordered.
--- NOTE | 2020-05-23 15:25 | NUR ---
MS RN NOTES NGT PULLED OUT, INSERTED NEW NGT FR#14 @60 CC X1 ATTEMPT, PATIENT TOLERATED PROCEDURE WELL. LISTENED FOR WHOOSHING SOUND GASTRIC SECRETIONS ASPIRATED. CXR ORDERED STAT FOR CONFIRMATION OF PLACEMENT
[2020-05-23 16:00] VITALS: BP 114/72
[2020-05-23] MEDS: DOCUSATE SODIUM LIQ 100 MG/10 ML UDC NG SCH (17:27)
--- NOTE | 2020-05-23 18:56 | NUR ---
RN MS CLOSING NOTES PATIENT RESTING IN BED. A/OX1, VERBALLY RESPONSIVE AND ABLE TO FOLLOW SIMPLY COMMANDS, ON RA, TOLERATING WELL WITH NO SIGNS OF SOB OR RESPIRATORY DISTRESS NOTED. PATIENT HAS NG TUBE IN PLACE TO LEFT NARES RUNNING NEPHRO AT 30 ML/HR. WITH IV ACCESS TO HARRIETT MIDLINE RUNNING D5W AT 75 ML/HR. SADLER CATH IS IN PLACE WITH 1800 CC OF CLEAR YELLOW OUTPUT NOTED. PATIENT WITH BILATERAL MITTENS RESTRAINTS IN PLACE. POTASSIUM REPLACEMENT GIVEN THIS SHIFT. BED IS LOCKED AND PLACED IN THE LOW POSITION, SIDE RAILS UP X3. CALL LIGHT WITHIN REACH. SAFETY MEASURES ARE IN PLACE, WILL ENDORSE TO CAMP MANAGER
--- NOTE | 2020-05-23 19:30 | NUR ---
advisory intern: received report from janny maurer. pt alert to name only, verbally responsive able to answer simple yes and no question, per report pt been lethargic yesterday. pt able to follow simple commands like opening her mouth clenching her teeth, turning side to side, somewhat unclear speech. received with bilateral hand mittens in placed, radial pulses palpable and intact, good capillary refill noted, pt able to move and wiggle arms and hands. iv access williams midline patent and flushing well, ifnusing with d5w at 75ml/hr. pt with ngtube inserted on left nare, receiving nepro at 30cc/hr, aspiration precaution engaged, kept hob 30 degree to 45 degree, suction set up secured. garcia catheter in placed, bag draining via gravity, tubing free from kinks. safety precautions for fall initiated, call light in reach, will continue monitoring pt.
[2020-05-23 20:00] VITALS: BP 114/71
--- NOTE | 2020-05-23 20:16 | NUR ---
rn notes/gtube check patency: received with ngtube inserted on left nare, cxr confirmed ngtube placement. flushed with 60cc airfilled syringed,gurgling sound heard upon auscultation, yellow gastric secretions obtained about 5ml. abdomen soft to touch with active bowel sound heard upon auscultation.kept hob 30 degree, kept on aspiration precaution.
[2020-05-23 20:20] VITALS: BP 114/71
--- NOTE | 2020-05-23 20:30 | NUR ---
rn notes: per pt's sticker/armband in the [facility], attending physician is dr montes, upon checking history and physical assessment, h&p was made by philippe bennett hospitalist under dr parisi. from the previous days both philippe and dr montes been seeing/following the pt. today pt was seen by philippe benedict. relayed bar turner adrián, as we need to call md in order to change pt's order from hand mittens, as pt still manage to try pulling garcia catheter and ngtube. previous order for restraint obtained/received from philippe bennett hospitalist. per bar turner recommendation, call philippe bennett.
--- NOTE | 2020-05-23 21:22 | NUR ---
rn notes: pt received with bilateral hand mitten but still manage to consistently attempt to pull out ngtube and tried getting out of bed, pt more awake, verbally responsive, notified epic md hospitalist, per md telephone order received to dc had mittens and apply bilateral soft wrist restraint. order read back verified and carried out.
[2020-05-23] MEDS ORDERED: risperiDONE 0.25 MG TABLET PO ONE (21:46)
[2020-05-23] MEDS: risperiDONE 0.25 MG TABLET PO SCH (21:48)
[2020-05-23] MEDS: NEPRO 1,000 ML BOTTLE GT PRN (22:10)
--- NOTE | 2020-05-23 22:21 | NUR ---
rn notes: received phone call from pt's sister zen ortiz, provided with update, answer all concern based on recent imaging labs and plan of care of md. sister very appreciative to care provided to her sister. she claimed she spoked with dr barrios however for some reason line got disconnected.
--- NOTE | 2020-05-23 23:08 | NUR ---
accu check: blood sugar check performed and result is 119. no insulin coverage per md.
--- NOTE | 2020-05-24 02:54 | NUR ---
rn notes/immunization status: upon doing 24 hr chart check, check pt's records/paper works from facility, pt from [facility]. records shows pt received flu vaccine on 05/16/2020, and pneumococcal vaccine on 05/19/2020. records in [facility] regarding flu and pna vaccine updated at this time.
--- NOTE | 2020-05-24 04:35 | NUR ---
rn notes/am care: assisted qualitative researcher in providing bed bath to pt, complete linen change provided, oral care performed, soft bm noted brown in color, garcia cather bag emptied 1400 ml yellow colored urine.
[2020-05-24] MEDS: BLOOD SUGAR DIAGNOSTIC 1 EACH STRIP IN SCH ×4 (05:07→23:34)
--- NOTE | 2020-05-24 05:08 | NUR ---
accu check 107: blood sugar check performed and result obtained is 107. pt on ngtube feeding nepro at 30ml/hr.
--- NOTE | 2020-05-24 06:56 | NUR ---
End of shift report: Pt remains a/o x1, awake, verbally responsive, on aspiration precaution, remains with ngtube inserted on left nare, receiving nepro at 30ml/hr, tolerated well by pt, no residual obtained. Remains with bilateral soft wrist restraint in placed, restraint protocol followed, pt able to move and wiggle arms and hands, radial pulses palpable and intact, good capillary refill noted. Christine midline remains patent and flushing well, infusing with d5w at 75ml/hr, no s/s of iv infiltration noted. Johnston catheter remains in place, bag emptied by detective homicide squad. Plan of care: swallow eval today, kept hob 30-45 degree, maintain aspiration precaution, psych eval when more awake, peg tube placement no order yet. Safety precautions for fall remains engaged, call light in reach, will endorse to day rn for continuity of care.
[2020-05-24 07:07] LABS: ALANINE AMINOTRANSFERASE 133 U/L (12-78); ALBUMIN 2.5 g/dL (3.4-5.0); ALKALINE PHOSPHATASE 144 U/L (46-116); ASPARTATE AMINOTRANSFERASE 90 U/L (15-37); BILIRUBIN,TOTAL 0.2 mg/dL (0.2-1.0); CARBON DIOXIDE 21 mmol/L (21-32); CHLORIDE 114 mmol/L (98-107); GLUCOSE 116 mg/dL (74-106); MAGNESIUM 2.6 mg/dL (1.8-2.4); PHOSPHORUS 3.1 mg/dL (2.5-4.9); POTASSIUM 3.9 mmol/L (3.5-5.1); SODIUM SERUM 145 mmol/L (136-145); TOTAL PROTEIN, SERUM 6.3 g/dL (6.4-8.2); UREA NITROGEN, BLOOD 12 mg/dL (7-18)
[2020-05-24 07:11] LABS: CREATININE < 0.2 mg/dL (0.6-1.3)
--- NOTE | 2020-05-24 07:30 | NUR ---
MS/RN OPENING NOTE Received patient in bed, A&O x 1. Denies any pain and discomfort at this time. Breathing even and non-labored on RA, no SOB noted. No cardiac distress noted. NG tube in place, patent and intact, and running Nepro 30 ml/hr. Midline access noted on HARRIETT, patent and intact, and running D5W @ 75 ml/hr. Bilateral soft wrist restraints in place, circulation and sensation noted. Sensation from all other peripheral extremities intact. Bed locked to its lowest position, side rails x 2 up, call light in reach. Will continue with current medical management.
[2020-05-24 08:30] LABS: BASOPHILS % (AUTO) 0.5 % (0.0-2.0); EOSINOPHILS % (AUTO) 1.7 % (0.0-6.0); HEMATOCRIT 39 % (33-45); LYMPHOCYTES % (AUTO) 19.5 % (20.0-44.0); MEAN CORPUSCULAR HGB CONC 31 g/dl (31.0-36.0); MEAN CORPUSCULAR VOLUME 99 fL (82-100); MONOCYTES # (AUTO) 0.3 /CMM (0.1-1.30); NEUTROPHILS # (AUTO) 3.7 /CMM (1.8-8.9); NEUTROPHILS % (AUTO) 73.3 % (43.0-81.0); PLATELET COUNT (AUTO) 210 /CMM (150-450); RED BLOOD CELL COUNT(AUTO) 3.93 MIL/uL (4.0-5.2)
[2020-05-24 08:53] VITALS: BP 115/47
--- NOTE | 2020-05-24 09:35 | NUR ---
WOUND CARE CONSULT: PT SEEN FOR SACRAL SKIN REASSESSMENT AND NOTED TO HAVE BLANCHABLE REDNESS TO SACRUM. DISCUSSED SKIN PROTECTION WITH NURSING STAFF. PT IS ON [place] ISOFLEX LOW AIRLOSS BED. WILL SEE PRN. ESQUIVEL IN AGREEMENT WITH PLAN OF CARE.
[2020-05-24 09:38] LABS: LYMPHOCYTES % (MANUAL) 16 % (16-48); MONOCYTES % (MANUAL) 10 % (0-11.0); NEUTROPHILS % (MANUAL) 74 (42-76)
[2020-05-24] MEDS: ASPIRIN 81 MG TAB.CHEW PO SCH (10:00)
[2020-05-24] MEDS: ENOXAPARIN SODIUM 30 MG/0.3 ML DISP.SYRIN SQ SCH (10:01)
[2020-05-24] MEDS: BENZTROPINE MESYLATE (1 MG) 1 MG TABLET NG SCH ×2 (10:01→17:42)
[2020-05-24] MEDS: CLOTRIMAZOLE 1% 15 GM TUBE TP SCH ×2 (10:02→17:41)
[2020-05-24] MEDS: FLUCONAZOLE (100 MG) 100 MG TABLET GT SCH (10:02)
[2020-05-24] MEDS: PANTOPRAZOLE 40 MG/PACK PACK GT SCH (10:05)
[2020-05-24 16:51] VITALS: BP 110/56
[2020-05-24] MEDS: DOCUSATE SODIUM LIQ 100 MG/10 ML UDC NG SCH (17:42)
--- NOTE | 2020-05-24 19:14 | NUR ---
MS/RN CLOSING NOTE Received patient in bed, A&O x 1, sleeping. Denies any pain and discomfort at this time. Breathing even and non-labored on RA. No respiratory or cardiac distress noted. NG tube in place, patent and intact, and running Nepro 30 ml/hr. Midline access noted on HARRIETT, patent and intact, and running NS TKO. Bilateral soft wrist restraints in place, circulation and sensation noted. Sensation from all other peripheral extremities intact. Fall precautions maintained. Will endorse to manager shift nurse.
[2020-05-24 20:00] VITALS: BP 126/62
--- NOTE | 2020-05-24 20:15 | NUR ---
rn notes/gtube check patency: ngtube inserted on left nare, cxr confirmed ngtube placement. flushed with 60cc airfilled syringed,gurgling sound heard upon auscultation, yellow gastric secretions obtained about 5ml. abdomen soft to touch with active bowel sound heard upon auscultation.kept hob 30 degree, kept on aspiration precaution.
--- NOTE | 2020-05-24 20:42 | NUR ---
concrete journeyman: received report from karissa maurer. pt awake, verbally responsive with unclear speech noted, stated help me let me go, as she tried getting out of bed. iv access williams midline patent and flushing well, on hl. pt with ngtube inserted on left nare, receiving nepro at 30cc/hr, aspiration precaution engaged, kept hob 30 degree at all times, suction set up secured. received with bilateral soft wrist restraint in placed, radial pulses palpable and intact, good capillary refill noted, pt able to move and wiggle arms and hands. garcia catheter in placed, bag draining via gravity, tubing free from kinks. safety precautions for fall initiated, call light in reach, will continue monitoring pt.
[2020-05-24] MEDS: risperiDONE 0.25 MG TABLET PO SCH (22:19)
[2020-05-24] MEDS: NEPRO 1,000 ML BOTTLE GT PRN (22:28)
[2020-05-25] MEDS: BLOOD SUGAR DIAGNOSTIC 1 EACH STRIP IN SCH ×3 (05:27→17:04)
--- NOTE | 2020-05-25 06:20 | NUR ---
rn notes/mri checklist/consent: spoked with zen ortiz, pt's sister, informed about order for mri brain wo contrast, all information to answer the mri checklist question were obtained from zen ortiz, and hosital and facility records were checked. zen ortiz giving full consent to have mri brain performed to pt. telephone consent obtained, witnessed cosigned by libertad gaston.
--- NOTE | 2020-05-25 06:49 | NUR ---
End of shift report: Pt remains awake, verbally responsive, Remains with bilateral soft wrist restraint in placed, restraint protocol followed, pt able to move and wiggle arms and hands, radial pulses palpable and intact, good capillary refill noted. on aspiration precaution, remains with ngtube inserted on left nare, receiving nepro at 30ml/hr, tolerated well by pt, no residual obtained. Christine midline remains patent and flushing well on hl, no s/s of iv infiltration noted. Johnston catheter remains in place, bag emptied by cup machine operator. Plan of care: mri brain wo contrast, checklist completed, answered by pts sister zen ortiz, kept hob 30-45 degree, maintain aspiration precaution, psych eval when more awake, peg tube placement no order yet. Safety precautions for fall remains engaged, call light in reach, will endorse to day rn for continuity of care.
--- NOTE | 2020-05-25 07:30 | NUR ---
MS/RN OPENING NOTE Received patient awake in bed, A&O x 1, verbally responsive. No complaints of pain/discomfort at this time. Breathing even and non-labored on RA. No respiratory or cardiac distress noted. HARRIETT midline, patent and intact, and running NS TKO. Bilateral soft wrist restraints in place, circulation and sensation intact. Sensation from all other extremities intact. Bed locked to its lowest position, side rails x 2 up, call light in hand. Will continue current plan of care.
[2020-05-25 08:00] VITALS: BP 113/64
[2020-05-25] MEDS: FLUCONAZOLE (100 MG) 100 MG TABLET GT SCH (08:22)
[2020-05-25] MEDS: PANTOPRAZOLE 40 MG/PACK PACK GT SCH (08:22)
[2020-05-25] MEDS: BENZTROPINE MESYLATE (1 MG) 1 MG TABLET NG SCH ×2 (08:23→17:04)
[2020-05-25] MEDS: CLOTRIMAZOLE 1% 15 GM TUBE TP SCH ×2 (08:23→17:05)
[2020-05-25] MEDS: ASPIRIN 81 MG TAB.CHEW PO SCH (08:23)
[2020-05-25] MEDS: ENOXAPARIN SODIUM 30 MG/0.3 ML DISP.SYRIN SQ SCH (08:31)
--- NOTE | 2020-05-25 12:30 | NUR ---
MS/RN NOTE Patient pulled out NG tube. Assessed nare, no bleeding or trauma noted.
--- NOTE | 2020-05-25 13:15 | NUR ---
MS/RN NOTE Successfully inserted NG tube, positive placement per cxr. Will continue to monitor.
[2020-05-25 16:00] VITALS: BP 131/47
--- NOTE | 2020-05-25 17:00 | NUR ---
MS/RN NOTE Notified Rui FRAME BUILDER of MRI results.
[2020-05-25] MEDS: DOCUSATE SODIUM LIQ 100 MG/10 ML UDC NG SCH (17:04)
--- NOTE | 2020-05-25 18:45 | NUR ---
MS/RN CLOSING NOTE Patient resting in bed, A&O x 1, verbally responsive upon tactile and verbal stimulation. All needs met and attended. No complaints of pain/discomfort throughout shift. Breathing even and non-labored on RA. No respiratory or cardiac distress noted. HARRIETT midline, patent and intact, and running NS TKO. Bilateral soft wrist restraints in place, circulation and sensation intact. Johnston in place, draining yellow urine output well. Sensation from all other extremities intact. Fall precautions maintained. Will endorse to inventory specialist manager nurse.
[2020-05-25 20:00] VITALS: BP 114/66
--- NOTE | 2020-05-25 20:22 | NUR ---
rn notes: endorsed to libertad johnston for continuity of care.
--- NOTE | 2020-05-25 21:10 | NUR ---
MS/TELE/RN ASSUMED CARE FOR CONTINUITY OF CARE. DURING ASSESSMENT PATIENT WAS AWAKE, CONFUSED, RESTLESS, BOTH WRIST SOFT RESTRAINT NOTED, FEEDING WAS OFF, I REMOVED THE NG TUBE IT WAS COILED IN THE MOUTH, MADE PATIENT COMFORTABLE IN BED. WILL MONITOR.
--- NOTE | 2020-05-25 23:26 | NUR ---
MS/JUDAH/RN SUCCESSFULLY INSERTED NG TUBE AT RT. NARES, POSITIVE PLACEMENT WAS NOTED, VERIFIED BY BALWINDER MURPHY, WITH THE SAME FINDING. ENTERED ORDER FOR CXR TO VERIFY THE NG TUBE PLACEMENT.
[2020-05-26] MEDS ORDERED: risperiDONE 0.25 MG TABLET PO ONE (00:30)
[2020-05-26] MEDS: BLOOD SUGAR DIAGNOSTIC 1 EACH STRIP IN SCH ×5 (00:32→23:28)
[2020-05-26] MEDS: risperiDONE 0.25 MG TABLET PO SCH ×2 (00:33→22:16)
--- NOTE | 2020-05-26 06:13 | NUR ---
MS/TELE/RN PATIENT IS STILL SLEEPING AT THIS TIME, APPEAR COMFORTABLE, NO DISTRESS NOTED, NGT FEEDING INFUSING, NO RESIDUAL NOTED, HOB ELEVATED, ALL NEEDS ATTENDED AT THIS TIME, WILL CONTINUE TO MONITOR.
[2020-05-26 08:00] VITALS: BP 111/67
--- NOTE | 2020-05-26 08:00 | NUR ---
RN Opening Note Patient received in bed, sleeping, able to responds physical stimuli. Does no appears pain or discomfort, skin is worm to touch, keep clean/dry, intact midline site on right upper arm with NS TKO, also intact NG tube running Nephro at 30ml/hr flushed with water for tube patency. Respiratory even and unlabored on room air, no distress observed. Keep locked bed with lowest position and elevated HOB for ensure airway and aspiration precaution. Call light within reach, will continue to monitor.
[2020-05-26 08:42] LABS: BASOPHILS % (AUTO) 0.4 % (0.0-2.0); EOSINOPHILS % (AUTO) 1.4 % (0.0-6.0); HEMATOCRIT 38 % (33-45); HEMOGLOBIN 12.3 g/dL (11.5-14.8); LYMPHOCYTES # (AUTO) 0.8 /CMM (0.8-4.8); LYMPHOCYTES % (AUTO) 15.4 % (20.0-44.0); MEAN CORPUSCULAR HGB CONC 33 g/dl (31.0-36.0); MEAN CORPUSCULAR VOLUME 93 fL (82-100); MONOCYTES # (AUTO) 0.3 /CMM (0.1-1.30); MONOCYTES % (AUTO) 5.6 % (2.0-12.0); NEUTROPHILS # (AUTO) 4.1 /CMM (1.8-8.9); NEUTROPHILS % (AUTO) 77.2 % (43.0-81.0); PLATELET COUNT (AUTO) 322 /CMM (150-450); RED BLOOD CELL COUNT(AUTO) 4.07 MIL/uL (4.0-5.2); WHITE BLOOD COUNT (AUTO) 5.4 K/uL (4.3-11.0)
[2020-05-26 08:54] LABS: ALBUMIN 2.6 g/dL (3.4-5.0); BILIRUBIN,TOTAL 0.3 mg/dL (0.2-1.0); CALCIUM, SERUM 10.1 mg/dL (8.5-10.1); MAGNESIUM 2.6 mg/dL (1.8-2.4); PHOSPHORUS 3.9 mg/dL (2.5-4.9); POTASSIUM 3.6 mmol/L (3.5-5.1); TOTAL PROTEIN, SERUM 6.5 g/dL (6.4-8.2)
[2020-05-26] MEDS: FLUCONAZOLE (100 MG) 100 MG TABLET GT SCH (09:17)
[2020-05-26] MEDS: BENZTROPINE MESYLATE (1 MG) 1 MG TABLET NG SCH ×2 (09:17→17:04)
[2020-05-26] MEDS: PANTOPRAZOLE 40 MG/PACK PACK GT SCH (09:17)
[2020-05-26] MEDS: ASPIRIN 81 MG TAB.CHEW PO SCH (09:17)
[2020-05-26] MEDS: ENOXAPARIN SODIUM 30 MG/0.3 ML DISP.SYRIN SQ SCH (09:19)
[2020-05-26] MEDS: CLOTRIMAZOLE 1% 15 GM TUBE TP SCH ×2 (09:21→17:04)
[2020-05-26] MEDS: ACYCLOVIR IV SCH ×2 (13:34→20:50)
[2020-05-26] MEDS: D5W IV SCH ×2 (13:34→20:50)
[2020-05-26 16:00] VITALS: BP 113/82
[2020-05-26] MEDS: DOCUSATE SODIUM LIQ 100 MG/10 ML UDC NG SCH (17:04)
--- NOTE | 2020-05-26 18:32 | NUR ---
RN Closing Note Patient is in bed resting, confuse , attempting out of bed. Patient does no appears apin or discomfort, skin is warm to touch, keep clean/dry, intact midline site on right upper arm with TKO at 5ml/hr also intact NG tube, flushed water for tube patency and patient tolerated. Respiratory even and unlabored on room air O2sat 98%, no distress observed. Call light within reach, will endorse welder 2nd shift.
--- NOTE | 2020-05-26 19:00 | NUR ---
RECEIVED IN BED ALERT TO SELF HOB ELEVATED NOTED ngt FEEDING INFUSING AT 30 ML HOURS TIGIST WRIST RESTRAINTS ON BUT LOOSE ENOUGH SHE CAN MOVE HER ARM JUST NOT REACH HER NGT SADLER IN PLACE BED ALARM ON
[2020-05-27] MEDS: NEPRO 1,000 ML BOTTLE GT PRN (02:11)
--- NOTE | 2020-05-27 04:09 | NUR ---
ENDING NURSES NOTES: CONFUSED. ASPIRATION PRECAUTIONS THIS 12 HOURS D/T NGT FEEDING NO RESIDUAL OBTAINED. SHE WILL NOT STAY UP IN THE BED SHE SCOOTS DOWN FREQUENTLY. RIGHT ARM MIDLINE WITH DRESSING. SADLER SMOOTH COLORED URINE NOTED ON HER ABD AND CHEST AND BACK PINK RASH NOTED RIGHT SIDE OF HER F/H BROWNISH PURPELISH COLOR RASH SP HERPES SHE DOES SPEAK MAKING NO SENSE
[2020-05-27] MEDS: ACYCLOVIR IV SCH ×3 (04:34→20:37)
[2020-05-27] MEDS: D5W IV SCH ×3 (04:34→20:37)
[2020-05-27] MEDS: IV NS 0.9% 1,000 ML IV PRN (05:22)
[2020-05-27] MEDS: BLOOD SUGAR DIAGNOSTIC 1 EACH STRIP IN SCH ×4 (06:22→23:45)
[2020-05-27 08:00] VITALS: BP 104/71
--- NOTE | 2020-05-27 08:00 | NUR ---
m/s silk blocker: initial assessment received pt in bed awake, alert to self only. on brenna wrist restraint, release and reposition for adl's and circulation. ngt intact and patent with no residual obtained. hob elevated. will continue to monitor.
[2020-05-27] MEDS: ENOXAPARIN SODIUM 30 MG/0.3 ML DISP.SYRIN SQ SCH (08:52)
[2020-05-27] MEDS: FLUCONAZOLE (100 MG) 100 MG TABLET GT SCH (08:53)
[2020-05-27] MEDS: ASPIRIN 81 MG TAB.CHEW PO SCH (08:53)
[2020-05-27] MEDS: PANTOPRAZOLE 40 MG/PACK PACK GT SCH (08:53)
[2020-05-27] MEDS: BENZTROPINE MESYLATE (1 MG) 1 MG TABLET NG SCH ×2 (08:53→17:47)
[2020-05-27] MEDS: CLOTRIMAZOLE 1% 15 GM TUBE TP SCH ×2 (08:59→16:43)
[2020-05-27 09:45] LABS: BASOPHILS % (AUTO) 0.3 % (0.0-2.0); EOSINOPHILS % (AUTO) 1.6 % (0.0-6.0); HEMATOCRIT 42 % (33-45); HEMOGLOBIN 13.8 g/dL (11.5-14.8); LYMPHOCYTES % (AUTO) 14.9 % (20.0-44.0); MEAN CORPUSCULAR HGB CONC 33 g/dl (31.0-36.0); MEAN CORPUSCULAR VOLUME 94 fL (82-100); MONOCYTES # (AUTO) 0.5 /CMM (0.1-1.30); MONOCYTES % (AUTO) 7.2 % (2.0-12.0); NEUTROPHILS # (AUTO) 4.8 /CMM (1.8-8.9); PLATELET COUNT (AUTO) 284 /CMM (150-450); RED BLOOD CELL COUNT(AUTO) 4.49 MIL/uL (4.0-5.2); WHITE BLOOD COUNT (AUTO) 6.4 K/uL (4.3-11.0)
--- NOTE | 2020-05-27 10:00 | NUR ---
m/s padded box sewer: notes released and repositioned brenna wrist restraint for am care and adl's. turned and repositioned. kept comfortable. will continue to monitor.
[2020-05-27 11:03] LABS: CREATININE 0.9 mg/dL (0.6-1.3); POTASSIUM 4.1 mmol/L (3.5-5.1)
--- NOTE | 2020-05-27 12:56 | NUR ---
m/s theater projectionist: nephro f/u seen by dr. montes with orders. orders acknowledged.
--- NOTE | 2020-05-27 13:10 | NUR ---
m/s continuous mining machine operator: notes isabel (picc line nurse) here and inserted midline to right upper arm, gauge #18, jose. well.
--- NOTE | 2020-05-27 15:25 | NUR ---
m/s telecom specialist: notes resting comfortable in bed. releases and repositioned brenna wrist restraints for adl's and circulation. will continue to monitor.
[2020-05-27 16:00] VITALS: BP 110/86
--- NOTE | 2020-05-27 16:10 | NUR ---
m/s auto glass technician: neuro f/u seen by dr. powell at this time.
[2020-05-27] MEDS: DOCUSATE SODIUM LIQ 100 MG/10 ML UDC NG SCH (17:47)
--- NOTE | 2020-05-27 18:00 | NUR ---
m/s informatics physician liaison: notes zen ortiz (sister) called and updated plan of care. pt sounds asleep. no distress noted. needs attended. will continue to monitor.
--- NOTE | 2020-05-27 19:00 | NUR ---
m/s utility aide: notes report given to delia (libertad) for continuity of care.
[2020-05-27 19:52] VITALS: BP 149/64
--- NOTE | 2020-05-27 20:03 | NUR ---
RECEIVED PATIENT IN BED CONFUSED PULLING OFF HER GOWN AND BED COVERS NGT IN PLACE NEPHRO INFUSING 40 ML HR ASP PRECAUTION HOB ELEVATED SADLER DRAINAGE DARK SMOOTH ,IDLINE RIGHT UPPER ARM
[2020-05-27 20:10] VITALS: BP 149/64
[2020-05-27] MEDS: risperiDONE 0.25 MG TABLET PO SCH (21:58)
[2020-05-28] MEDS: IV NS 0.9% 1,000 ML IV PRN (00:14)
--- NOTE | 2020-05-28 04:19 | NUR ---
CONFUSED TIGIST WRIST RESTRAINTS RENEWED AT 0200 INCONTINENT LARGE SOFT BROWN BM AND LARGE AMOUNT URINE SKIN INTACT ASPIRATION PRECAUTIONS NGT TO RIGHT NOSTRIL CHICKED FOR PLACEMENT AND IN THE STOMACH FDG NEPHRO AT 40 ML HR NO RESIDUAL
[2020-05-28] MEDS: ACYCLOVIR IV SCH ×3 (04:28→21:11)
[2020-05-28] MEDS: D5W IV SCH ×3 (04:28→21:11)
[2020-05-28] MEDS: BLOOD SUGAR DIAGNOSTIC 1 EACH STRIP IN SCH ×4 (06:25→23:22)
[2020-05-28 06:41] LABS: BASOPHILS % (AUTO) 0.9 % (0.0-2.0); EOSINOPHILS % (AUTO) 2.6 % (0.0-6.0); HEMATOCRIT 32 % (33-45); HEMOGLOBIN 10.6 g/dL (11.5-14.8); LYMPHOCYTES # (AUTO) 0.9 /CMM (0.8-4.8); LYMPHOCYTES % (AUTO) 19.5 % (20.0-44.0); MEAN CORPUSCULAR HGB CONC 33 g/dl (31.0-36.0); MEAN CORPUSCULAR VOLUME 94 fL (82-100); MONOCYTES # (AUTO) 0.2 /CMM (0.1-1.30); MONOCYTES % (AUTO) 5.5 % (2.0-12.0); NEUTROPHILS # (AUTO) 3.1 /CMM (1.8-8.9); NEUTROPHILS % (AUTO) 71.5 % (43.0-81.0); PLATELET COUNT (AUTO) 319 /CMM (150-450); RED BLOOD CELL COUNT(AUTO) 3.43 MIL/uL (4.0-5.2); WHITE BLOOD COUNT (AUTO) 4.4 K/uL (4.3-11.0)
[2020-05-28 07:04] LABS: ALBUMIN 2.3 g/dL (3.4-5.0); BILIRUBIN,TOTAL 0.2 mg/dL (0.2-1.0); CALCIUM, SERUM 9.5 mg/dL (8.5-10.1); CREATININE 0.9 mg/dL (0.6-1.3); MAGNESIUM 2.4 mg/dL (1.8-2.4); PHOSPHORUS 2.9 mg/dL (2.5-4.9); POTASSIUM 3.4 mmol/L (3.5-5.1); TOTAL PROTEIN, SERUM 6.1 g/dL (6.4-8.2)
[2020-05-28 08:00] VITALS: BP 139/93
[2020-05-28] MEDS: ASPIRIN 81 MG TAB.CHEW PO SCH (08:29)
[2020-05-28] MEDS: PANTOPRAZOLE 40 MG/PACK PACK GT SCH (08:29)
[2020-05-28] MEDS: BENZTROPINE MESYLATE (1 MG) 1 MG TABLET NG SCH ×2 (08:29→16:30)
[2020-05-28] MEDS: ENOXAPARIN SODIUM 30 MG/0.3 ML DISP.SYRIN SQ SCH (08:31)
[2020-05-28] MEDS: CLOTRIMAZOLE 1% 15 GM TUBE TP SCH ×2 (09:06→19:19)
[2020-05-28] MEDS ORDERED: POTASSIUM CHLORIDE 20 MEQ POWDER PACKET NG SCH (09:30)
[2020-05-28 16:00] VITALS: BP 119/66
--- NOTE | 2020-05-28 18:48 | NUR ---
RN CLOSING NOTES PATIENT IN STABLE CONDITION. ALL NEEDS ATTENDED AND PROVIDED. ALL DUE MEDICATIONS GIVEN ORDERED. WOUND CARE RENDERED. TURNED AND REPOSITIONED PATIENT EVERY 2HRS AND NEEDED. KEPT PATIENT SKIN CLEAN AND DRY. SAFETY MEASURES IN PLACE. BED IN LOW/LOCKED POSITION, SIDERAILS UP, CALL LIGHT IN REACH. WILL ENDORSE ACCORDINGLY.
[2020-05-28] MEDS: DOCUSATE SODIUM LIQ 100 MG/10 ML UDC NG SCH (19:20)
--- NOTE | 2020-05-28 19:42 | NUR ---
MS RN NOTES PATIENT IN BED, AWAKE, CONFUSED. BREATHING EVEN AND UNLABORED ON ROOM AIR. SHOWS NO SIGNS OF ACUTE RESPIRATORY DISTRESS, NO ACUTE PAIN. TIGIST WRIST RESTRAINT ON WITH NO S/S OF POOR CIRCULATION, NO SKIN TEARS. SADLER INTACT AND IN PLACE FLOW SMOOTH CLOUDY URINE. R NARE NT TUBE FLUSHED WITH AIR TO CHECK FOR PLACEMENT. RUNNING NEPHRO AT 30ML/HR. HARRIETT MIDLINE RUNNING NS AT 75ML/HR. SHOWS NO SIGNS OF INFILTRATION, NO REDNESS. SAFETY PRECAUTIONS IN PLACE. BED IN LOWEST POSITION, LOCKED, AND CALL LIGHT KEPT WITHIN REACH. WILL CONTINUE TO MONITOR.
[2020-05-28 20:00] VITALS: BP 132/58
[2020-05-28 20:36] VITALS: BP 132/58
[2020-05-28] MEDS: risperiDONE 0.25 MG TABLET PO SCH (21:11)
--- NOTE | 2020-05-29 00:30 | NUR ---
MS RN NOTE PATIENT PULLED NG TUBE, REINSERTED AND GOT ORDER FOR XR CHEST FOR PLACEMENT.
[2020-05-29] MEDS: IV NS 0.9% 1,000 ML IV PRN (02:13)
[2020-05-29] MEDS: ACYCLOVIR IV SCH ×2 (05:21→12:59)
[2020-05-29] MEDS: D5W IV SCH ×2 (05:21→12:59)
[2020-05-29] MEDS: BLOOD SUGAR DIAGNOSTIC 1 EACH STRIP IN SCH ×3 (05:36→18:00)
--- NOTE | 2020-05-29 06:38 | NUR ---
MS RN NOTES PATIENT PULLED OUT NG TUBE X 2. 2ND ATTEMPT AND PT NOSE BLEEDING. MD MADE AWARE.
--- NOTE | 2020-05-29 06:40 | NUR ---
MS RN NOTES PATIENT IN BED, AWAKE, CONFUSED. BREATHING EVEN AND UNLABORED ON ROOM AIR. SHOWS NO SIGNS OF ACUTE RESPIRATORY DISTRESS, NO ACUTE PAIN. TIGIST WRIST RESTRAINT ON WITH NO S/S OF POOR CIRCULATION, NO SKIN TEARS. RELEASED AND REPOSITIONED THROUGHOUT SHIFT. SADLER INTACT AND IN PLACE FLOW SMOOTH CLOUDY URINE. HARRIETT MIDLINE RUNNING NS AT 75ML/HR. SHOWS NO SIGNS OF INFILTRATION, NO REDNESS.ALL DUE MEDICATION GIVEN. ALL NEEDS ATTENDED TO. SAFETY PRECAUTIONS IN PLACE. BED IN LOWEST POSITION, LOCKED, AND CALL LIGHT KEPT WITHIN REACH. WILL ENDORSE TO ONCOMING NURSE.
--- NOTE | 2020-05-29 06:45 | NUR ---
MS RN NOTES PER BEATRICE, OKAY TO NOT HAVE NG TUBE. WILL ENDORSE TO ONCOMING NURSE.
[2020-05-29 07:15] LABS: CALCIUM, SERUM 10.3 mg/dL (8.5-10.1); CREATININE 0.8 mg/dL (0.6-1.3); MAGNESIUM 2.5 mg/dL (1.8-2.4); PHOSPHORUS 3.2 mg/dL (2.5-4.9); POTASSIUM 3.4 mmol/L (3.5-5.1)
[2020-05-29 07:25] LABS: BASOPHILS % (AUTO) 0.5 % (0.0-2.0); EOSINOPHILS % (AUTO) 2.2 % (0.0-6.0); HEMATOCRIT 35 % (33-45); HEMOGLOBIN 11.5 g/dL (11.5-14.8); LYMPHOCYTES # (AUTO) 0.9 /CMM (0.8-4.8); LYMPHOCYTES % (AUTO) 17.6 % (20.0-44.0); MEAN CORPUSCULAR HGB CONC 33 g/dl (31.0-36.0); MEAN CORPUSCULAR VOLUME 93 fL (82-100); MONOCYTES # (AUTO) 0.3 /CMM (0.1-1.30); MONOCYTES % (AUTO) 5.2 % (2.0-12.0); NEUTROPHILS # (AUTO) 3.7 /CMM (1.8-8.9); NEUTROPHILS % (AUTO) 74.5 % (43.0-81.0); PLATELET COUNT (AUTO) 394 /CMM (150-450); RED BLOOD CELL COUNT(AUTO) 3.76 MIL/uL (4.0-5.2)
--- NOTE | 2020-05-29 07:29 | NUR ---
MS/RN OPENING NOTES Received patient resting in bed, A&O 1, confused. Denies any pain/discomfort at this time. Breathing even and non-labored on RA, no SOB noted. No cardiac distress noted. HARRIETT midline access patent and intact, running NS @ 75 ml/hr. Bilateral soft wrist restraints in place, circulation, sensation, and skin is intact. Johnston in place, patent and intact, draining emilia cloudy urine. Bed locked to its lowest position, bed alarm on, side rails x 2 up, call light in reach. Will continue current medical management.
[2020-05-29 08:00] VITALS: BP 147/91
--- NOTE | 2020-05-29 08:25 | NUR ---
MS/RN NOTE Patient has no NGT since nares bled last night but patient has an order of pureed nectar diet. Notified MD and charge nurse to change meds to PO.
[2020-05-29] MEDS: BENZTROPINE MESYLATE (1 MG) 1 MG TABLET PO SCH ×2 (08:44→16:48)
[2020-05-29] MEDS: ASPIRIN 81 MG TAB.CHEW PO SCH (08:45)
[2020-05-29] MEDS: CLOTRIMAZOLE 1% 15 GM TUBE TP SCH ×2 (08:45→16:48)
[2020-05-29] MEDS: ENOXAPARIN SODIUM 30 MG/0.3 ML DISP.SYRIN SQ SCH (08:56)
[2020-05-29] MEDS ORDERED: SPIRONOLACTONE 25 MG TABLET PO SCH (09:00)
[2020-05-29] MEDS ORDERED: MODAFINIL 100 MG TABLET PO SCH (09:00)
[2020-05-29] MEDS ORDERED: PANTOPRAZOLE 40 MG/PACK PACK PO SCH (09:00)
--- NOTE | 2020-05-29 09:30 | NUR ---
MS/RN NOTE Patient noted with bruises on left and right arm. Patient is on lovenox, moves a lot in bed, and is easily bruised by blood draws and injections. Photos taken and placed on chart, made meteorologist in charge aware. Will continue to monitor.
--- NOTE | 2020-05-29 09:31 | NUR ---
MS/RN NOTE Patient was able to tolerate pureed diet with nectar thickened fluids. Was able to finish 75% of meal without choking or coughing. Will continue to monitor.
--- NOTE | 2020-05-29 11:20 | NUR ---
MS/RN NOTE Per Dr. Navas, cancel GI consult and patient can be dc-ed today since she was able to tolerate diet well. Notified Dr. Chamberlain. Will continue to monitor.
[2020-05-29] MEDS: POTASSIUM CHLORIDE 20 MEQ POWDER PACKET PO SCH ×2 (12:01→13:01)
[2020-05-29] MEDS ORDERED: BENZ1TAB7 PO (14:42)
[2020-05-29] MEDS ORDERED: SPIR25TA6 PO (14:42)
[2020-05-29] MEDS ORDERED: Modafinil PO (14:42)
--- NOTE | 2020-05-29 15:00 | NUR ---
MS/RN NOTE Discontinued garcia catheter since patient will be discharged to SNF. Perineal area clean and dry, no redness or bleeding noted. Will monitor for urine output.
--- NOTE | 2020-05-29 16:00 | NUR ---
MS/RN NOTE Patient was able to void on pad. Will continue to monitor.
[2020-05-29 16:02] VITALS: BP 110/70
[2020-05-29] MEDS ORDERED: DOCUSATE SODIUM LIQ 100 MG/10 ML UDC PO SCH (18:00)
--- NOTE | 2020-05-29 18:00 | NUR ---
MS/RN NOTE Gave report to BALWINDER Villanueva @ [facility] regarding patient's discharge instructions and plan of care. Answered all questions at his satisfaction, gave our unit number just in case he has any more questions. Kay verbalizes understanding and will call if he has any concerns.
--- NOTE | 2020-05-29 18:15 | NUR ---
MS/RN NOTE Patient refused blood sugar check and docusate sodium, getting agitated and combative. Frequently reoriented and redirected. Will continue to monitor.
--- NOTE | 2020-05-29 19:13 | NUR ---
MS/RN CLOSING NOTES Patient awake in bed, A&O 1. Denies any pain/discomfort at this time. Breathing even and non-labored on RA, no SOB noted. No cardiac distress noted. HARRIETT midline access removed with catheter intact, patient scheduled to be discharge at 1900. Bilateral soft wrist restraints in place, circulation, sensation, and skin is intact. Educated patient regarding discharge instructions. No belongings in hand. Fall precautions maintained. Will endorse to power and recovery shift engineer nurse.
--- NOTE | 2020-05-29 19:29 | NUR ---
RN OPENING NOTES PATIENT RECEIVED RESTING IN BED A/O X 1. STABLE ON RA WITH BREATHING EVEN AND UNLABORED, NO SOB NOTED. NO SIGNS OF ACUTE DISTRESS. NO SIGNS OF PAIN OR DISCOMFORT. WRIST RESTRAINTS IN PLACE WITH SKIN IN TACT, NO REDNESS, PULSE PRESENT. IV REMOVED BY PREVIOUS SHIFT. SAFETY PRECAUTIONS IN PLACE WITH BED IN LOWEST POSITION, CALL LIGHT WITHIN REACH, BREAKS ON, SIDE RAILS UP. AWAITING DISCHARGE ENGLISH AND READING INSTRUCTOR. WILL CONTINUE TO MONITOR.
--- NOTE | 2020-05-29 19:55 | NUR ---
SSIS DEVELOPER NOTED PATIENT DISCHARGED WITH [facility] MEDICALLY STABLE. STABLE ON RA VITALS TAKEN 102// 61 HR 82 RR 20 O2SAT 94% T 98.4. IV SITE REMOVED FROM PREVIOUS SHIFT. MEDICAL BAND REMOVED. NO BELONGINGS. DISCHARGE PAPER WORK GIVEN TO EMT.
== END 2020-05-29 20:54 | DRG 73 ==
LOC: ER 18:59 → ICU 05-18 01:05 → TELE 05-20 14:01 → MED 05-21 10:11
PROVIDERS: ADMIT Internal Medicine; ATTEND Student in an Organized Health Care Education/Training Program
PROC: 05HB33Z Insertion of Infusion Device into Right Basilic Vein, Percutaneous Approach (ICD-10-PCS; principal; 2020-05-27)
DX: B02.0 Zoster encephalitis (principal); N17.0 Acute kidney failure with tubular necrosis; I21.A1 Myocardial infarction type 2; E43 Unspecified severe protein-calorie malnutrition; G93.41 Metabolic encephalopathy; D68.59 Other primary thrombophilia; E87.2 Acidosis; E87.0 Hyperosmolality and hypernatremia; B49 Unspecified mycosis; R13.10 Dysphagia, unspecified; Z74.09 Other reduced mobility; E78.5 Hyperlipidemia, unspecified; F03.90 Unspecified dementia, unspecified severity, without behavioral disturbance, psychotic disturbance, mood disturbance, and anxiety; N18.9 Chronic kidney disease, unspecified; I12.9 Hypertensive chronic kidney disease with stage 1 through stage 4 chronic kidney disease, or unspecified chronic kidney disease; Z79.899 Other long term (current) drug therapy; F20.9 Schizophrenia, unspecified; F29 Unspecified psychosis not due to a substance or known physiological condition; F31.9 Bipolar disorder, unspecified; N13.9 Obstructive and reflux uropathy, unspecified; Z86.19 Personal history of other infectious and parasitic diseases; R00.1 Bradycardia, unspecified; E83.39 Other disorders of phosphorus metabolism; D64.9 Anemia, unspecified; E83.52 Hypercalcemia; E86.1 Hypovolemia; E87.6 Hypokalemia; K80.20 Calculus of gallbladder without cholecystitis without obstruction; R62.7 Adult failure to thrive
CPT/HCPCS: 36415; 36600; 70450-TC; 70551-TC; 71045-TC; 76700-TC; 80048-TC; 80053-TC; 80061-TC; 80076-TC; 81000-TC; 82140-TC; 82570-TC; 82652; 82728-TC; 82962-TC; 83540-TC; 83605-TC; 83735-TC; 83970; 84100-TC; 84155-TC; 84300-TC; 84439-TC; 84443-TC; 84484-TC; 85025-TC; 85730-TC; 87040-TC; 87081-TC; 87086-TC; 92526; 92611-TC; 93307-TC; A4216; A4217; C9803; G0378; J0133; J1450; J1650; J3480; J3490; J7030; J7042; J7050; J7060; J7070